=== PATIENT | male | born 1985 | race Caucasian/White ===

== ENCOUNTER 2024-09-16 18:30 | Emergency (ER) | payer MEDICAID ==
--- NOTE | 2024-09-16 18:33 | ERPHSYRPT ---
- History of Present Illness Time Seen by Provider: 09/16/24 18:33 Source: patient Exam Limitations: no limitations Physician History: This is a 39-year-old white male patient who was brought to the emergency department by law enforcement secondary to homicidal thoughts. He wants to hurt people. Patient admits to using K2 prior to arrival. Patient has paranoid behavior and he thinks the devil is following him. Despite that statement, patient states he denies visual or auditory hallucinations. He denies being suicidal but has had suicidal thoughts in the past. He denies headache. He denies chest pain. He denies shortness of breath. He has no abdominal pain. Patient is a daily smoker of tobacco cigarettes. Patient has a history of gastroesophageal reflux disease, ulcer disease, depression and panic disorder. Patient states that he prefers to go to [facility]. Timing/Duration: today Severity of Symptoms-Max: moderate Severity of Symptoms-Current: moderate Context related to: other (Drug abuse and admits to wanting to hurt people) Associated Symptoms: anxiety, paranoid, other Previous symptoms: same symptoms as today, no recent treatment Allergies/Adverse Reactions: No Known Drug Allergies Allergy (Verified 04/27/23 01:45) Home Medications: Omeprazole Magnesium [Prilosec Otc] 20 mg PO HS 04/27/23 [History] Hx Tetanus, Diphtheria Vaccination/Date Given: Yes Hx Influenza Vaccination/Date Given: No Hx Pneumococcal Vaccination/Date Given: No Travel Risk - International Travel Have you traveled outside of the country in past 3 weeks: No - Emerging Infectious Disease Are you exhibiting symptoms associated with any current EIDs: No - Past Medical History Pertinent Past Medical History: Yes Neurological History: No Pertinent History ENT History: No Pertinent History Cardiac History: Hypertension Respiratory History: No Pertinent History Endocrine Medical History: No Pertinent History Musculoskeletal History: Fractures GI Medical History: Ulcer, GERD History: No Pertinent History Psycho-Social History: Depression, Anxiety, Panic Disorder Male Reproductive Disorders: No Pertinent History Other Medical History: egd x2 - Past Surgical History Past Surgical History: Yes Neuro Surgical History: No Pertinent History Cardiac: No Pertinent History Respiratory: No Pertinent History Gastrointestinal: Cholecystectomy, Other Genitourinary: No Pertinent History Musculoskeletal: Orthopedic Surgery Male Surgical History: No Pertinent History Other Surgical History: egd, repair of marti. hand fractures, repair of colar bone fracture, repair of skull fracture - Social History Smoking Status: Current every day smoker How long have you smoked: 15yo Exposure to second hand smoke: Yes Drug Use: none Patient Lives Alone: No - Review of Systems Constitutional: No Symptoms Eyes: No Symptoms Ears, Nose, & Throat: No Symptoms Respiratory: No Symptoms Cardiac: No Symptoms Abdominal/Gastrointestinal: No Symptoms Genitourinary Symptoms: No Symptoms Musculoskeletal: No Symptoms Skin: No Symptoms Neurological: No Symptoms Psychological: Drug Abuse, Anxiety, Homicidal Ideations, Other (Paranoid behavior) Endocrine: No Symptoms Hematologic/Lymphatic: No Symptoms Immunological/Allergic: No Symptoms All Other Systems: Reviewed and Negative - Nursing Vital Signs Nursing Vital Signs: Initial Vital Signs Temperature 98.8 F 09/16/24 18:31 Pulse Rate 120 H 09/16/24 18:31 Respiratory Rate 20 09/16/24 18:31 Blood Pressure 184/112 09/16/24 18:31 O2 Sat by Pulse Oximetry 98 09/16/24 18:31 Pain Scale Pain Intensity 0 - Physical Exam General Appearance: no apparent distress, alert, anxiety Eyes, Ears, Nose, Throat Exam: normal ENT inspection, moist mucous membranes Neck Exam: normal inspection, non-tender, supple, full range of motion Respiratory Exam: normal breath sounds, lungs clear, airway intact, No chest tenderness, No respiratory distress Cardiovascular Exam: tachycardia Gastrointestinal/Abdominal Exam: soft, normal bowel sounds, No tenderness Extremities Exam: normal inspection, normal range of motion, No evidence of injury Current Suicidality: denies suicide plan 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 QTc is 470.) Ordered Tests: Active Orders 24 hr Category Date Time Status EKG-ER Only STAT Care 09/16/24 18:52 Active IV Insertion STAT Care 09/16/24 18:52 Active ACETAMINOPHEN Stat Lab 09/16/24 19:00 Completed CBC W DIFF Stat Lab 09/16/24 19:00 Completed CMP Stat Lab 09/16/24 19:00 Completed ETHYL ALCOHOL Stat Lab 09/16/24 19:00 Completed SALICYLATE Stat Lab 09/16/24 19:00 Completed UA W/RFX UR CULTURE Stat Lab 09/16/24 18:59 Completed Urine Triage Profile Stat Lab 09/16/24 18:59 Completed Medication Summary Generic Name Dose Route Start Last Admin Trade Name Freq PRN Reason Stop Dose Admin Nicotine 14 mg 09/16/24 20:45 09/16/24 21:02 Nicotine 14 Mg/Patch Patch TOP 10/16/24 20:44 14 mg Q24H ASHA Administration Discontinued Medications Generic Name Dose Route Start Last Admin Trade Name Freq PRN Reason Stop Dose Admin Haloperidol Lactate 5 mg 09/16/24 21:21 Haloperidol Lactate 5 Mg/Ml Vial IV 09/16/24 21:22 STAT ONE Haloperidol Lactate 2.5 mg 09/16/24 21:24 Haloperidol Lactate 5 Mg/Ml Vial IV 09/16/24 21:25 STAT ONE Sodium Chloride 1,000 mls @ 999 mls/hr 09/16/24 18:52 09/16/24 19:25 Sodium Chloride 0.9% 1000 Ml IV 09/16/24 19:52 999 mls/hr .Q1H1M STA Administration Sodium Chloride Confirm 09/16/24 19:16 Sodium Chloride 0.9% 1000 Ml Administered 09/16/24 19:17 Dose 1,000 mls @ ud .ROUTE .STK-MED ONE Lorazepam 1 mg 09/16/24 18:52 09/16/24 19:21 Lorazepam 2 Mg/1 Ml 2 Mg Vial IV 09/16/24 18:53 1 mg STAT ONE Administration Lorazepam Confirm 09/16/24 19:16 Lorazepam 2 Mg/1 Ml 2 Mg Vial Administered 09/16/24 19:17 Dose 2 mg .ROUTE .STK-MED ONE Ondansetron HCl 4 mg 09/16/24 18:52 09/16/24 19:18 Ondansetron Hcl 4 Mg/2 Ml Vial IV 09/16/24 18:53 4 mg STAT ONE Administration Ondansetron HCl Confirm 09/16/24 19:15 Ondansetron Hcl 4 Mg/2 Ml Vial Administered 09/16/24 19:16 Dose 4 mg .ROUTE .STK-MED ONE Lab/Rad Data: Laboratory Result Diagrams 09/16/24 19:00 09/16/24 19:00 Laboratory Results 09/16/24 09/16/24 09/16/24 Range/Units 19:00 19:00 18:59 WBC 7.1 (4.23-9.07) x10^3/uL RBC 4.19 L (4.63-6.08) x10^6/uL Hgb 13.8 (13.7-17.5) g/dL Hct 39.5 L (40.1-51.0) % MCV 94.3 H (79.0-92.2) fL MCH 32.9 H (25.7-32.2) pg MCHC 34.9 (32.3-36.5) g/dL RDW 11.9 (11.6-14.4) % Plt Count 286 (163-337) x10^3/uL MPV 9.4 (9.4-12.4) fL Gran % 52.1 (34.0-67.9) % Immature Gran % (Auto) 0.3 (0.001-0.429) % Nucleat RBC Rel Count 0.0 (0.00-0.2) % Eos # (Auto) 0.38 (0.04-0.54) x10^3/uL Immature Gran # (Auto) 0.02 (0.001-0.031) x10^3u/L Absolute Lymphs (auto) 2.26 (1.32-3.57) x10^3/uL Absolute Monos (auto) 0.68 (0.30-0.82) x10^3/uL Absolute Nucleated RBC 0.00 (0.00-0.012) x10^3u/L Lymphocytes % 31.7 (21.8-53.1) % Monocytes % 9.6 (5.3-12.2) % Eosinophils % 5.3 (0.8-7.0) % Basophils % 1.0 (0.2-1.2) % Absolute Granulocytes 3.71 (1.78-5.38) x10^3/uL Basophils # 0.07 (0.01-0.08) x10^3/uL Sodium 140 (135-145) mmol/L Potassium 3.7 (3.5-5.1) mmol/L Chloride 103 (98-107) mmol/L Carbon Dioxide 25 (22-30) mmol/L Anion Gap 15.6 H (5-15) MEQ/L BUN 12 (9-20) mg/dL Creatinine 0.84 (0.66-1.25) mg/dL Estimated GFR 113.8 ML/MIN Glucose 117 H (74-106) mg/dL Calcium 9.1 (8.4-10.2) mg/dL Total Bilirubin 0.30 (0.2-1.3) mg/dL AST 33 (17-59) U/L ALT 24 (0-50) U/L Alkaline Phosphatase 67 (38-126) U/L Serum Total Protein 6.8 (6.3-8.2) g/dL Albumin 4.0 (3.5-5.0) g/dL Urine Color (Yellow) Urine Appearance (Clear) Urine pH (4.6-8.0) Ur Specific [place] (1.005-1.030) Urine Protein (Negative) Urine Glucose (UA) (Negative) mg/dL Urine Ketones (Negative) Urine Blood (Negative) Urine Nitrite (Negative) Urine Bilirubin (Negative) Urine Urobilinogen (0.2) mg/dL Ur Leukocyte Esterase (Negative) U Hyaline Cast (Auto) (0-2) /LPF Urine Microscopic RBC (0-5) /HPF Urine Microscopic WBC (0-5) /HPF Ur Epithelial Cells (None Seen) /HPF Urine Bacteria (None Seen) /HPF Urine Culture Reflexed (NO) Salicylates < 1.0 L (2-20) mg/dL Urine Opiates Level NEGATIVE (NEGATIVE) Ur Methadone NEGATIVE (NEGATIVE) Acetaminophen < 10 L (10-30) ug/ml Urine Barbiturates NEGATIVE (NEGATIVE) Ur Phencyclidine (PCP) NEGATIVE (NEGATIVE) Urine Amphetamine POSITIVE A (NEGATIVE) U Benzodiazepine Level NEGATIVE (NEGATIVE) Urine Cocaine NEGATIVE (NEGATIVE) Urine Marijuana (THC) POSITIVE A (NEGATIVE) Ethyl Alcohol < 10 (0-10) mg/dL 09/16/24 Range/Units 18:59 WBC (4.23-9.07) x10^3/uL RBC (4.63-6.08) x10^6/uL Hgb (13.7-17.5) g/dL Hct (40.1-51.0) % MCV (79.0-92.2) fL MCH (25.7-32.2) pg MCHC (32.3-36.5) g/dL RDW (11.6-14.4) % Plt Count (163-337) x10^3/uL MPV (9.4-12.4) fL Gran % (34.0-67.9) % Immature Gran % (Auto) (0.001-0.429) % Nucleat RBC Rel Count (0.00-0.2) % Eos # (Auto) (0.04-0.54) x10^3/uL Immature Gran # (Auto) (0.001-0.031) x10^3u/L Absolute Lymphs (auto) (1.32-3.57) x10^3/uL Absolute Monos (auto) (0.30-0.82) x10^3/uL Absolute Nucleated RBC (0.00-0.012) x10^3u/L Lymphocytes % (21.8-53.1) % Monocytes % (5.3-12.2) % Eosinophils % (0.8-7.0) % Basophils % (0.2-1.2) % Absolute Granulocytes (1.78-5.38) x10^3/uL Basophils # (0.01-0.08) x10^3/uL Sodium (135-145) mmol/L Potassium (3.5-5.1) mmol/L Chloride (98-107) mmol/L Carbon Dioxide (22-30) mmol/L Anion Gap (5-15) MEQ/L BUN (9-20) mg/dL Creatinine (0.66-1.25) mg/dL Estimated GFR ML/MIN Glucose (74-106) mg/dL Calcium (8.4-10.2) mg/dL Total Bilirubin (0.2-1.3) mg/dL AST (17-59) U/L ALT (0-50) U/L Alkaline Phosphatase (38-126) U/L Serum Total Protein (6.3-8.2) g/dL Albumin (3.5-5.0) g/dL Urine Color Dark Yellow (Yellow) Urine Appearance Clear (Clear) Urine pH 5.5 (4.6-8.0) Ur Specific [place] >=1.030 A (1.005-1.030) Urine Protein 30 (Negative) Urine Glucose (UA) Negative (Negative) mg/dL Urine Ketones Trace A (Negative) Urine Blood Negative (Negative) Urine Nitrite Negative (Negative) Urine Bilirubin Negative (Negative) Urine Urobilinogen 1.0 A (0.2) mg/dL Ur Leukocyte Esterase Negative (Negative) U Hyaline Cast (Auto) NONE SEEN (0-2) /LPF Urine Microscopic RBC 0-2 (0-5) /HPF Urine Microscopic WBC 0-2 (0-5) /HPF Ur Epithelial Cells None Seen (None Seen) /HPF Urine Bacteria None Seen (None Seen) /HPF Urine Culture Reflexed NO (NO) Salicylates (2-20) mg/dL Urine Opiates Level (NEGATIVE) Ur Methadone (NEGATIVE) Acetaminophen (10-30) ug/ml Urine Barbiturates (NEGATIVE) Ur Phencyclidine (PCP) (NEGATIVE) Urine Amphetamine (NEGATIVE) U Benzodiazepine Level (NEGATIVE) Urine Cocaine (NEGATIVE) Urine Marijuana (THC) (NEGATIVE) Ethyl Alcohol (0-10) mg/dL - Progress Progress: improved Progress Note: 09/16/24 19:24 My medical decision making of the assignment of moderate to high complexity of this patient's medical issue today is based on review of the patient's past medical history, review the patient's medication list, review the patient drug allergy list, history present illness and physical findings on examination. The workup in this patient includes placement of a intravenous line, infusion of normal saline solution, infusion of Zofran, urinalysis, urine drug triage, CBC, CMP, acetaminophen level, ethyl alcohol level, salicylate level. Differential diagnosis includes but is not limited to illicit drug intoxication, alcohol intoxication, panic disorder, homicidal ideation 09/16/24 19:31 I interpreted the patient's laboratory data results. The patient tested positive for amphetamines and marijuana. His urinalysis also showed evidence of mild dehydration. 09/16/24 21:22 This patient is becoming more irritated and agitated. We did provide him with 1 mg of intravenous lorazepam but it did not seem to help calm him. We will provide him with Haldol lactate intravenously 2.5 mg. We are also in the process of filling out the paperwork for emergency snf. Patient is threatening to leave. 09/17/24 01:05 We held off on providing this patient with Haldol. [facility] stated they wanted 4 hours between any medication that is altering this patient's mental status. Patient was given Ativan. After 4 hours from the last dose of Ativan, [facility] reevaluated patient and now accepts the patient for transfer. Counseled pt/family regarding: lab results, diagnosis Medical Desision Making - Diagnostic Testing Diagnostic test were ordered, analyzed, and reviewed by me: Yes - Risk of complications The pt has a high risk of morbidity or mortality based on: Decision regarding hospitilization or escalation of hosp level of care - Departure Departure Disposition: Transfer Clinical Impression: Homicidal ideation, Paranoia Condition: Stable Critical Care Time: No Referrals: CHANTEL MOBLEY MD [Primary Care Provider] - Follow up/PCP as directed
[2024-09-16 19:03] LABS: Appearance Clear (Clear); Bacteria None Seen /HPF (None Seen); Bilirubin Negative (Negative); Blood Negative (Negative); Epithelial Cells None Seen /HPF (None Seen); Glucose, Urine Negative (Negative); Hyaline Casts NONE SEEN /LPF (0-2); Ketones Trace (Negative); Leukocyte Esterase Negative (Negative); Nitrite Negative (Negative); Ph 5.5 (4.6-8.0); Protein,Urine Dip 30 (Negative); RBC 0-2 /HPF (0-5); Specific Gravity >=1.030 (1.005-1.030); WBC 0-2 /HPF (0-5)
[2024-09-16 19:05] LABS: Absolute Neutrophil Ct (ANC) 3.71 x10^3/uL (1.78-5.38); Basophil (Absolute #) 0.07 x10^3/uL (0.01-0.08); Eosinophil % 5.3 % (0.8-7.0); Eosinophil (Absolute #) 0.38 x10^3/uL (0.04-0.54); Hematocrit 39.5 % (40.1-51.0); Hemoglobin 13.8 g/dL (13.7-17.5); IMMATURE GRAN # 0.02 x10^3u/L (0.001-0.031); IMMATURE GRAN % 0.3 % (0.001-0.429); Lymphocyte (Absolute #) 2.26 x10^3/uL (1.32-3.57); Lymphocytes % 31.7 % (21.8-53.1); Mean Cell Volume 94.3 fL (79.0-92.2); Mean Corpuscular Hemoglobin 32.9 pg (25.7-32.2); Mean Corpuscular Hgb Concent. 34.9 g/dL (32.3-36.5); Mean Platelet Volume 9.4 fL (9.4-12.4); Monocyte (Absolute #) 0.68 x10^3/uL (0.30-0.82); Monocytes % 9.6 % (5.3-12.2); Neutrophil % 52.1 % (34.0-67.9); Platelet Count 286 x10^3/uL (163-337); Red Blood Count 4.19 x10^6/uL (4.63-6.08); Red Cell Distribution Width 11.9 % (11.6-14.4); White Blood Count 7.1 x10^3/uL (4.23-9.07)
[2024-09-16] MEDS ORDERED: Zofran 4 MG/2 ML VIAL ONE (19:15)
[2024-09-16] MEDS ORDERED: Ativan 2 MG/1 ML VIAL ONE (19:16)
[2024-09-16] MEDS ORDERED: Sodium Chloride 0.9% 1000 ML 1,000 ML ONE (19:16)
[2024-09-16] MEDS: Zofran 4 MG/2 ML VIAL IV ONE (19:18)
[2024-09-16 19:19] LABS: Amphetamine,Urine POSITIVE (NEGATIVE); Barbiturate,Urine NEGATIVE (NEGATIVE); Benzodiazepine,Urine NEGATIVE (NEGATIVE); Cocaine,Urine NEGATIVE (NEGATIVE); Methadone,Urine NEGATIVE (NEGATIVE); Opiate,Urine NEGATIVE (NEGATIVE); PCP,Urine NEGATIVE (NEGATIVE); THC,Urine POSITIVE (NEGATIVE)
[2024-09-16 19:21] LABS: ACETAMINOPHEN < 10 ug/ml (10-30); ALKALINE PHOSPHATASE 67 U/L (38-126); ANION GAP 15.6 MEQ/L (5-15); BLOOD UREA NITROGEN 12 mg/dL (9-20); CHLORIDE 103 mmol/L (98-107); Calcium 9.1 mg/dL (8.4-10.2); Carbon Dioxide 25 mmol/L (22-30); Creatinine 1 0.84 mg/dL (0.66-1.25); EST GLOMERULAR FILTRATION RATE 113.8 ML/MIN; ETHYL ALCOHOL < 10 mg/dL (0-10); Glucose 117 mg/dL (74-106); Potassium 3.7 mmol/L (3.5-5.1); SALICYLATE < 1.0 mg/dL (2-20); SGOT/AST 33 U/L (17-59); SODIUM 140 mmol/L (135-145); Total Protein 6.8 g/dL (6.3-8.2)
[2024-09-16] MEDS: Ativan 2 MG/1 ML VIAL IV ONE (19:21)
[2024-09-16 19:22] LABS: SGPT/ALT 24 U/L (0-50)
[2024-09-16] MEDS: Sodium Chloride 0.9% 1000 ML 1,000 ML IV STA (19:25)
[2024-09-16] MEDS ORDERED: NICODERM CQ 14 MG ONE (20:48)
[2024-09-16] MEDS: NICODERM CQ 14 MG TOP SCH (21:02)
[2024-09-17] MEDS: Haldol 5 MG IV ONE ×2 (03:01)
[2024-09-17 09:11] VITALS: BP 147/62; PULSE 98; RESP 18; TEMP 97.2; O2SAT 98
== END 2024-09-17 09:35 | disposition short-term general hospital (02) ==
LOC: ED 18:30
DX: R45.850 Homicidal ideations (principal); F22 Delusional disorders; R45.1 Restlessness and agitation; I10 Essential (primary) hypertension; Z79.899 Other long term (current) drug therapy; Z72.0 Tobacco use
CPT/HCPCS: 36415; 80053; 80143; 80179; 80307; 81001; 82077; 85025; 93005; 96361; 96374; 96375; 99285; J2060; J2405; A9270-GY

== ENCOUNTER 2024-10-11 22:30 | Observation (INO) | payer OTHER ==
[2024-10-11 22:55] LABS: Absolute Neutrophil Ct (ANC) 5.71 x10^3/uL (1.78-5.38); BASOPHIL % 0.7 % (0.2-1.2); Basophil (Absolute #) 0.08 x10^3/uL (0.01-0.08); Eosinophil % 3.7 % (0.8-7.0); Hematocrit 43.9 % (40.1-51.0); Hemoglobin 15.5 g/dL (13.7-17.5); IMMATURE GRAN # 0.06 x10^3u/L (0.001-0.031); IMMATURE GRAN % 0.6 % (0.001-0.429); Lymphocyte (Absolute #) 3.88 x10^3/uL (1.32-3.57); Lymphocytes % 35.8 % (21.8-53.1); Mean Cell Volume 93.4 fL (79.0-92.2); Mean Corpuscular Hgb Concent. 35.3 g/dL (32.3-36.5); Mean Platelet Volume 10.6 fL (9.4-12.4); Monocyte (Absolute #) 0.72 x10^3/uL (0.30-0.82); Monocytes % 6.6 % (5.3-12.2); Neutrophil % 52.6 % (34.0-67.9); Platelet Count 413 x10^3/uL (163-337); Red Cell Distribution Width 12.8 % (11.6-14.4); White Blood Count 10.9 x10^3/uL (4.23-9.07)
[2024-10-11 23:11] LABS: PROTIME 10.9 SECONDS (9.4-12.5); PTT 27.1 SECONDS (25.1-36.5)
[2024-10-11 23:15] LABS: ALBUMIN 4.7 g/dL (3.5-5.0); ANION GAP 17.6 MEQ/L (5-15); BILIRUBIN,TOTAL 0.4 mg/dL (0.2-1.3); Calcium 9.5 mg/dL (8.4-10.2); Creatinine 1 0.74 mg/dL (0.66-1.25); EST GLOMERULAR FILTRATION RATE 118.2 ML/MIN; MAGNESIUM 1.7 mg/dL (1.6-2.3); Potassium 3.7 mmol/L (3.5-5.1)
--- NOTE | 2024-10-11 23:35 | XRAY ---
CLINICAL HISTORY: facial droop COMPARISON: None. TECHNIQUE: Axial non-contrast CT scan of the brain was performed from the skull base to the high parietal region. One of the following dose reduction techniques were utilized for this exam: Automated exposure control, adjustment of the mA and/or kV according to patient size, use of iterative reconstruction. FINDINGS: Brain Parenchyma: Right posterior parietal focal hypodense area measuring 10 mm in subcortical aspect, better delineated on stroke windows, this may represent an acute infarct, considering patients history however clinical correlation and an MRI brain using stroke protocol is advised acute infarct. Ventricular System: Ventricles are normal in size and configuration. No evidence of hydrocephalus or ventricular enlargement. Subarachnoid Spaces: Normal sulci and cisterns. No evidence of subarachnoid hemorrhage or extra-axial fluid collections. Cerebellum and Brainstem: Normal size and signal. No masses, lesions, or areas of abnormal signal. Orbits: Intraocular silicone oil noted on the right side. Otherwise, normal appearance of the globes, optic nerves, and extraocular muscles. Sinuses: Clear paranasal sinuses. No evidence of sinusitis or mucosal thickening. Mastoid Air Cells: Clear mastoid air cells. No evidence of mastoiditis. Skull: Normal skull morphology. IMPRESSION: Small right posterior parietal focal hypodense area measuring 10 mm in subcortical aspect, better delineated on stroke windows. This may represent an acute infarct considering patient's history, however recommend clinical correlation and MR brain using stroke protocol with diffusion weighted sequences for further evaluation. The report was ready at 10:25 PM [facility], 10/11/2024 and the call was completed at 10:28 PM [facility] [[email or web address]], 10/11/2024, at and Orin (Nurse) was informed regarding the positive stroke results. She will inform the doctor. Electronically Signed by: Geetha Gardner MD. (10/11/2024 23:31:54 EDT)
[2024-10-12] MEDS ORDERED: Sodium Chloride 0.9% 1000 ML 1,000 ML ONE (00:47)
[2024-10-12] MEDS ORDERED: BABY ASPIRIN 81 MG CHEW ONE (00:47)
[2024-10-12] MEDS: BABY ASPIRIN 81 MG CHEW PO ONE (00:50)
[2024-10-12] MEDS: Sodium Chloride 0.9% 1000 ML 1,000 ML IV STA (00:50)
[2024-10-12 00:51] LABS: Appearance Clear (Clear); Bacteria None Seen /HPF (None Seen); Bilirubin Negative (Negative); Blood Negative (Negative); Epithelial Cells None Seen /HPF (None Seen); Glucose, Urine Negative (Negative); Hyaline Casts NONE SEEN /LPF (0-2); Ketones Negative (Negative); Leukocyte Esterase Negative (Negative); Nitrite Negative (Negative); Protein,Urine Dip Negative (Negative); RBC 0-2 /HPF (0-5); Specific Gravity 1.025 (1.005-1.030); WBC 0-2 /HPF (0-5)
--- NOTE | 2024-10-12 01:27 | ERPHSYRPT ---
- History of Present Illness Source: patient, family, EMS Exam Limitations: clinical condition Patient Subjective Stated Complaint: Girl friend states, " Triage Nursing Assessment: Pt brought in by EMS. At 1730 this evening, pt c/o left side of his body going numb. Pt's girlfriend was helping him to the bathroom and he wanted to get into the bathtub as she was trying to prevent him from getting in the tub, and they both fell. Girlfriend states, "he had slurred speech, left side of mouth was droopy and he couldn't move". Pt c/o left hand being numb and the first 3 fingers to the left hand being numb. Pt's left arm is somewhat flaccid, he is unable to hold it up. When smiling, left side facial droop noted and speech is slurred but able to make out what he is saying. Pt is alert and oriented x4. 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 Hx Tetanus, Diphtheria Vaccination/Date Given: Yes Hx Influenza Vaccination/Date Given: No Hx Pneumococcal Vaccination/Date Given: No - History of Present Illness Time Seen by Provider: 10/11/24 22:32 Physician History: 39-year-old male with history of anxiety/depression/schizophrenia, retinal detachment right eye/legally blind is brought in the ER by strokelike symptoms. Apparently patient has not been acting at his baseline for the last couple of days and around 7:30 PM he became really wobbly where he was not able to ambulate in his left side was not working, slurring of speech, his helped him to the bathroom and he was totally flaccid on the left side and fell. Did not hit his head. No loss of consciousness. Patient was noticed to have droo ping of left face (DENIZ ARREOLA) Allergies/Adverse Reactions: No Known Drug Allergies Allergy (Verified 10/12/24 04:27) Home Medications: Buspirone HCl 5 mg [Buspar 5 mg] 10 mg PO TID 10/11/24 [History] OLANZapine [Olanzapine] 10 mg PO HS 10/11/24 [History] Prazosin HCl 2 mg PO HS 10/12/24 [History] Trazodone HCl 100 mg PO HS 10/12/24 [History] hydrOXYzine pamoate [Hydroxyzine Pamoate] 1 cap PO Q6H PRN PRN 10/12/24 [Hist ory] Travel Risk - International Travel Have you traveled outside of the country in past 3 weeks: No - Emerging Infectious Disease Are you exhibiting symptoms associated with any current EIDs: No Symptoms: Other (Please Comment) Comment: numbness to left arm - Review of Systems Constitutional: Weakness Eyes: Other Ears, Nose, & Throat: No Symptoms Respiratory: No Symptoms Cardiac: No Symptoms Abdominal/Gastrointestinal: No Symptoms Musculoskeletal: Arthralgias Skin: No Symptoms Neurological: Dizziness, Focal Weakness, Sensory Changes Endocrine: No Symptoms Hematologic/Lymphatic: No Symptoms - Past Medical History Pertinent Past Medical History: Yes Neurological History: No Pertinent History ENT History: No Pertinent History Cardiac History: Hypertension Respiratory History: No Pertinent History Endocrine Medical History: No Pertinent History Musculoskeletal History: Fractures GI Medical History: GERD, Gallbladder Disease, Ulcer History: No Pertinent History Psycho-Social History: Depression, Anxiety, Panic Disorder Male Reproductive Disorders: No Pertinent History Other Medical History: egd x2, 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 - Past Surgical History Past Surgical History: Yes Neuro Surgical History: No Pertinent History Cardiac: No Pertinent History Respiratory: No Pertinent History Gastrointestinal: Cholecystectomy, Other Genitourinary: No Pertinent History Musculoskeletal: Orthopedic Surgery Male Surgical History: No Pertinent History Other Surgical History: egd, repair of marti. hand fractures, repair of colar bone fracture, repair of skull fracture - Social History Smoking Status: Current every day smoker How long have you smoked: 20 yrs Exposure to second hand smoke: Yes Drug Use: none - Social Determinants of Health Will the patient participate in the screening: Yes Do you worry about a steady place to live?: No Do you have any problems with any of the following?: No known problems In the past 12 months,have you had to go without utilities?: No Transportation Issues: Yes Has anyone in your support network made you feel unsafe?: No Have you or anyone in your house had to go w/o enough food: No - [place] Coma Scale Best Eye Response ([place]): (4) open spontaneously Best Verbal Response ([place]): (5) oriented Best Motor Response ([place]): (6) obeys commands [place] Total: 15 - Physical Exam General Appearance: no apparent distress, alert Eye Exam: left eye: normal inspection, PERRL, EOMI Ears, Nose, Throat Exam: other (Left facial droop) Neck Exam: normal inspection, non-tender, supple, full range of motion Respiratory: normal breath sounds, lungs clear Cardiovascular: regular rate/rhythm, normal heart sounds Gastrointestinal: soft, normal bowel sounds, No tenderness Back Exam: normal inspection Extremity Exam: normal inspection Mental Status: alert, oriented x 3, 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 Exam: normal hearing, facial asymmetry, facial droop, facial paresthesias, facial weakness, No normal speech Coordination/Gait: normal finger to nose, No normal gait Motor/Sensory: positive Babinski's sign, pronator drift (L), weak motor strength LUE, weak motor strength LLE DTR: bicep (R): 2+, bicep (L): 3+, tricep (R): 2+, tricep (L): 3+, knee (R): 2+, knee (L): 3+ Skin Exam: normal color SpO2 Interpretation: normal SpO2: 98 O2 Delivery: Room Air - Nursing Vital Signs Nursing Vital Signs: Initial Vital Signs Temperature 98.6 F 10/11/24 22:33 Pulse Rate 92 H 10/11/24 22:33 Respiratory Rate 16 10/11/24 22:33 Blood Pressure 137/90 10/11/24 22:33 O2 Sat by Pulse Oximetry 95 10/11/24 22:33 Pain Scale Pain Intensity 0 - Course EKG Interpreted by Me: RATE (90), Sinus Rhythm, NORMAL AXIS, NORMAL INTERVALS, NORMAL QRS Ordered Tests: Active Orders 24 hr Category Date Time Status Bedrest ROUTINE Activity 10/12/24 04:06 Active Up With Assistance ROUTINE Activity 10/12/24 04:06 Completed Call Admit Doctor for Orders ON ADMISSION Care 10/12/24 04:06 Active Supervisor Electronics Assembly STAT Care 10/11/24 22:47 Completed Code Status Order ROUTINE Care 10/12/24 04:06 Active Fall Protocol Q1H Care 10/12/24 04:06 Active NPO (ED) STAT Care 10/11/24 22:47 Completed Neuro Checks Q4H Care 10/12/24 04:[address] in Observation ROUTINE Care 10/12/24 04:06 Active Telemetry q6h Care 10/12/24 04:06 Active CHEST 1 VIEW (PORTABLE) Stat Exams 10/11/24 22:[address] ANGIOGRAPHY NECK [CT] Stat Exams 10/12/24 01:29 Completed CTA HEAD W AND/OR WO CONTRAST [CT] Stat Exams 10/12/24 01:28 Completed HEAD WITHOUT CONTRAST [CT] Stat Exams 10/11/24 22:47 Completed CBC W DIFF Stat Lab 10/11/24 22:52 Completed CMP Stat Lab 10/11/24 22:52 Completed Lactic Acid Stat Lab 10/11/24 22:47 Completed Lactic Acid Stat Lab 10/12/24 01:01 Completed MAGNESIUM Stat Lab 10/11/24 22:52 Completed POCT GLUCOSE Stat Lab 10/11/24 22:43 Completed PROTIME WITH INR Stat Lab 10/11/24 22:52 Completed PTT Stat Lab 10/11/24 22:52 Completed TROPONIN Q3H Lab 10/11/24 22:54 Completed TROPONIN Q3H Lab 10/12/24 02:28 Completed TROPONIN Q3H Lab 10/12/24 06:13 Results Pulse Oximetry CONTINUOUS RT 10/12/24 04:06 Active Respiratory Therapy Consult ONCE RT 10/12/24 04:06 Completed Transfer Order Routine Transfer 10/12/24 Completed Medication Summary Generic Name Dose Route Start Last Admin Trade Name Freq PRN Reason Stop Dose Admin Aspirin 81 mg 10/12/24 10:00 Aspirin 81 Mg Tablet.Ec PO 11/11/24 09:59 DAILY ASHA Buspirone HCl 10 mg 10/12/24 10:00 Buspirone Hcl 5 Mg Tablet PO 11/11/24 09:59 TID ASHA Sodium Chloride 1,000 mls @ 100 mls/hr 10/12/24 05:00 10/12/24 05:14 Sodium Chloride 0.9% 1000 Ml IV 11/11/24 04:59 100 mls/hr .Q10H ASHA Administration Miscellaneous Information 1 each 10/12/24 07:45 Medication Intervention 1 Each Each 11/11/24 07:44 .RN TO CHECK ASHA Olanzapine 10 mg 10/12/24 22:00 Olanzapine 5 Mg Tab PO 11/11/24 21:59 HS ASHA Trazodone HCl 100 mg 10/12/24 22:00 Trazodone Hcl 50 Mg Tablet PO 11/11/24 21:59 HS ASHA Discontinued Medications Generic Name Dose Route Start Last Admin Trade Name Freq PRN Reason Stop Dose Admin Aspirin 324 mg 10/12/24 00:08 10/12/24 00:50 Aspirin 81 Mg Tab.Chew PO 10/12/24 00:09 324 mg STAT ONE Administration Aspirin Confirm 10/12/24 00:47 Aspirin 81 Mg Tab.Chew Administered 10/12/24 00:48 Dose 324 mg .ROUTE .STK-MED ONE Sodium Chloride 1,000 mls @ 999 mls/hr 10/12/24 00:36 10/12/24 02:20 Sodium Chloride 0.9% 1000 Ml IV 10/12/24 01:36 Infused .Q1H1M STA Infusion Sodium Chloride Confirm 10/12/24 00:47 Sodium Chloride 0.9% 1000 Ml Administered 10/12/24 00:48 Dose 1,000 mls @ ud .ROUTE .STK-MED ONE Lorazepam 1 mg 10/12/24 09:34 10/12/24 09:39 Lorazepam 2 Mg/1 Ml 2 Mg Vial IV 10/12/24 09:35 1 mg STAT ONE Administration Lorazepam Confirm 10/12/24 09:38 Lorazepam 2 Mg/1 Ml 2 Mg Vial Administered 10/12/24 09:39 Dose 2 mg .ROUTE .STK-MED ONE Nicotine Confirm 10/12/24 03:05 Nicotine 21 Mg/Patch Patch Administered 10/12/24 03:06 Dose 21 mg .ROUTE .STK-MED ONE Lab/Rad Data: Laboratory Result Diagrams 10/11/24 22:52 10/11/24 22:52 Laboratory Results 10/12/24 10/12/24 10/11/24 Range/Units 02:28 01:01 22:54 WBC (4.23-9.07) x10^3/uL RBC (4.63-6.08) x10^6/uL Hgb (13.7-17.5) g/dL Hct (40.1-51.0) % MCV (79.0-92.2) fL MCH (25.7-32.2) pg MCHC (32.3-36.5) g/dL RDW (11.6-14.4) % Plt Count (163-337) x10^3/uL MPV (9.4-12.4) fL Gran % (34.0-67.9) % Immature Gran % (Auto) (0.001-0.429) % Nucleat RBC Rel Count (0.00-0.2) % Eos # (Auto) (0.04-0.54) x10^3/uL Immature Gran # (Auto) (0.001-0.031) x10^3u/L Absolute Lymphs (auto) (1.32-3.57) x10^3/uL Absolute Monos (auto) (0.30-0.82) x10^3/uL Absolute Nucleated RBC (0.00-0.012) x10^3u/L Lymphocytes % (21.8-53.1) % Monocytes % (5.3-12.2) % Eosinophils % (0.8-7.0) % Basophils % (0.2-1.2) % Absolute Granulocytes (1.78-5.38) x10^3/uL Basophils # (0.01-0.08) x10^3/uL PT (9.4-12.5) SECONDS INR (0.8-3.0) APTT (25.1-36.5) SECONDS Sodium (135-145) mmol/L Potassium (3.5-5.1) mmol/L Chloride (98-107) mmol/L Carbon Dioxide (22-30) mmol/L Anion Gap (5-15) MEQ/L BUN (9-20) mg/dL Creatinine (0.66-1.25) mg/dL Estimated GFR ML/MIN Glucose (74-106) mg/dL POC Glucometer (74 to 106) mg/dL Lactic Acid 1.5 (0.4-2.0) Calcium (8.4-10.2) mg/dL Magnesium (1.6-2.3) mg/dL Total Bilirubin (0.2-1.3) mg/dL AST (17-59) U/L ALT (0-50) U/L Alkaline Phosphatase (38-126) U/L Troponin I < 0.012 < 0.012 (0.000-0.033) ng/mL Serum Total Protein (6.3-8.2) g/dL Albumin (3.5-5.0) g/dL Urine Color (Yellow) Urine Appearance (Clear) Urine pH (4.6-8.0) Ur Specific [place] (1.005-1.030) Urine Protein (Negative) Urine Glucose (UA) (Negative) mg/dL Urine Ketones (Negative) Urine Blood (Negative) Urine Nitrite (Negative) Urine Bilirubin (Negative) Urine Urobilinogen (0.2) mg/dL Ur Leukocyte Esterase (Negative) U Hyaline Cast (Auto) (0-2) /LPF Urine Microscopic RBC (0-5) /HPF Urine Microscopic WBC (0-5) /HPF Ur Epithelial Cells (None Seen) /HPF Urine Bacteria (None Seen) /HPF Urine Culture Reflexed (NO) 10/11/24 10/11/24 10/11/24 Range/Units 22:52 22:52 22:52 WBC 10.9 H (4.23-9.07) x10^3/uL RBC 4.70 (4.63-6.08) x10^6/uL Hgb 15.5 (13.7-17.5) g/dL Hct 43.9 (40.1-51.0) % MCV 93.4 H (79.0-92.2) fL MCH 33.0 H (25.7-32.2) pg MCHC 35.3 (32.3-36.5) g/dL RDW 12.8 (11.6-14.4) % Plt Count 413 H (163-337) x10^3/uL MPV 10.6 (9.4-12.4) fL Gran % 52.6 (34.0-67.9) % Immature Gran % (Auto) 0.6 H (0.001-0.429) % Nucleat RBC Rel Count 0.0 (0.00-0.2) % Eos # (Auto) 0.40 (0.04-0.54) x10^3/uL Immature Gran # (Auto) 0.06 H (0.001-0.031) x10^3u/L Absolute Lymphs (auto) 3.88 H (1.32-3.57) x10^3/uL Absolute Monos (auto) 0.72 (0.30-0.82) x10^3/uL Absolute Nucleated RBC 0.00 (0.00-0.012) x10^3u/L Lymphocytes % 35.8 (21.8-53.1) % Monocytes % 6.6 (5.3-12.2) % Eosinophils % 3.7 (0.8-7.0) % Basophils % 0.7 (0.2-1.2) % Absolute Granulocytes 5.71 H (1.78-5.38) x10^3/uL Basophils # 0.08 (0.01-0.08) x10^3/uL PT 10.9 (9.4-12.5) SECONDS INR 1.00 (0.8-3.0) APTT 27.1 (25.1-36.5) SECONDS Sodium 142 (135-145) mmol/L Potassium 3.7 (3.5-5.1) mmol/L Chloride 104 (98-107) mmol/L Carbon Dioxide 24 (22-30) mmol/L Anion Gap 17.6 H (5-15) MEQ/L BUN 14 (9-20) mg/dL Creatinine 0.74 (0.66-1.25) mg/dL Estimated GFR 118.2 ML/MIN Glucose 140 H (74-106) mg/dL POC Glucometer (74 to 106) mg/dL Lactic Acid (0.4-2.0) Calcium 9.5 (8.4-10.2) mg/dL Magnesium 1.7 (1.6-2.3) mg/dL Total Bilirubin 0.40 (0.2-1.3) mg/dL AST 29 (17-59) U/L ALT 26 (0-50) U/L Alkaline Phosphatase 65 (38-126) U/L Troponin I (0.000-0.033) ng/mL Serum Total Protein 8.0 (6.3-8.2) g/dL Albumin 4.7 (3.5-5.0) g/dL Urine Color (Yellow) Urine Appearance (Clear) Urine pH (4.6-8.0) Ur Specific [place] (1.005-1.030) Urine Protein (Negative) Urine Glucose (UA) (Negative) mg/dL Urine Ketones (Negative) Urine Blood (Negative) Urine Nitrite (Negative) Urine Bilirubin (Negative) Urine Urobilinogen (0.2) mg/dL Ur Leukocyte Esterase (Negative) U Hyaline Cast (Auto) (0-2) /LPF Urine Microscopic RBC (0-5) /HPF Urine Microscopic WBC (0-5) /HPF Ur Epithelial Cells (None Seen) /HPF Urine Bacteria (None Seen) /HPF Urine Culture Reflexed (NO) 10/11/24 10/11/24 10/11/24 Range/Units 22:47 22:43 00:40 WBC (4.23-9.07) x10^3/uL RBC (4.63-6.08) x10^6/uL Hgb (13.7-17.5) g/dL Hct (40.1-51.0) % MCV (79.0-92.2) fL MCH (25.7-32.2) pg MCHC (32.3-36.5) g/dL RDW (11.6-14.4) % Plt Count (163-337) x10^3/uL MPV (9.4-12.4) fL Gran % (34.0-67.9) % Immature Gran % (Auto) (0.001-0.429) % Nucleat RBC Rel Count (0.00-0.2) % Eos # (Auto) (0.04-0.54) x10^3/uL Immature Gran # (Auto) (0.001-0.031) x10^3u/L Absolute Lymphs (auto) (1.32-3.57) x10^3/uL Absolute Monos (auto) (0.30-0.82) x10^3/uL Absolute Nucleated RBC (0.00-0.012) x10^3u/L Lymphocytes % (21.8-53.1) % Monocytes % (5.3-12.2) % Eosinophils % (0.8-7.0) % Basophils % (0.2-1.2) % Absolute Granulocytes (1.78-5.38) x10^3/uL Basophils # (0.01-0.08) x10^3/uL PT (9.4-12.5) SECONDS INR (0.8-3.0) APTT (25.1-36.5) SECONDS Sodium (135-145) mmol/L Potassium (3.5-5.1) mmol/L Chloride (98-107) mmol/L Carbon Dioxide (22-30) mmol/L Anion Gap (5-15) MEQ/L BUN (9-20) mg/dL Creatinine (0.66-1.25) mg/dL Estimated GFR ML/MIN Glucose (74-106) mg/dL POC Glucometer 144 H (74 to 106) mg/dL Lactic Acid 2.8 H (0.4-2.0) Calcium (8.4-10.2) mg/dL Magnesium (1.6-2.3) mg/dL Total Bilirubin (0.2-1.3) mg/dL AST (17-59) U/L ALT (0-50) U/L Alkaline Phosphatase (38-126) U/L Troponin I (0.000-0.033) ng/mL Serum Total Protein (6.3-8.2) g/dL Albumin (3.5-5.0) g/dL Urine Color Yellow (Yellow) Urine Appearance Clear (Clear) Urine pH 7.0 (4.6-8.0) Ur Specific [place] 1.025 (1.005-1.030) Urine Protein Negative (Negative) Urine Glucose (UA) Negative (Negative) mg/dL Urine Ketones Negative (Negative) Urine Blood Negative (Negative) Urine Nitrite Negative (Negative) Urine Bilirubin Negative (Negative) Urine Urobilinogen 1.0 A (0.2) mg/dL Ur Leukocyte Esterase Negative (Negative) U Hyaline Cast (Auto) NONE SEEN (0-2) /LPF Urine Microscopic RBC 0-2 (0-5) /HPF Urine Microscopic WBC 0-2 (0-5) /HPF Ur Epithelial Cells None Seen (None Seen) /HPF Urine Bacteria None Seen (None Seen) /HPF Urine Culture Reflexed NO (NO) - Progress Progress: re-examined Discussed with DrZelalem: Other (Dr. Yañez neurologist [facility]/Dr. Lord hospitalist) Will see patient in: hospital (observation) Counseled pt/family regarding: lab results, diagnosis, need for follow-up, rad results - Progress Progress Note: 10/12/24 03:34 39-year-old is evaluated in the ER for strokelike symptoms. Patient has left-sided weakness pronounced in the left upper extremity as compared to lower and facial droop with minimal dysarthria. Patient is out of the window for tPA. Prompt CT head stroke protocol is obtained which is positive for finding consistent with acute stroke. [facility] neurology consult is obtained and Dr. Yañez has seen patient, do not think patient is a candidate for any intervention at present, recommended obtaining CTA head and neck, full dose aspirin and starting him on low-dose daily aspirin, admission to hospitalist service with MRI, echo and other stroke workup. EKG is normal sinus rhythm with no acute ST elevations or arrhythmias. Other workup showed white count of 10, chemistries with mildly elevated gap of 17, lactate of 2.8, given fluid bolus. Chest x-ray is negative for any acute cardiopulmonary findings reviewed by me, official final report is pending. CTA head and neck are negative for any acute occlusive findings. Discussed with Dr. Lord hospitalist, reviewed history, workup and agreed with admission. Complexity of problem addressed: High acuity Complexity of data reviewed/analyzed: Extensive Risk of morbidity/mortality/complication with current condition: High risk (MAXWELL,DENIZ) Chest x-ray ordered. ER physician read the chest x-ray as normal. However Dr. Leung observed the chest x-ray and identified a new right infrahilar opacity. Dr. Leung notified the emergency department at approximately 8:55 AM. Emergency patient x-ray correlation form completed. Patient was admitted to the floor. Nurse Sparks contacted the RN caring for our patient. RN was informed of the chest x-ray finding. 10/12/24 09:50 (ESVIN VICK) Medical Desision Making - Independent Historian Additional History obtained from: Relative/friend - Discussion of managment Care discussed with:: specialist (Dr. Otilio WEST neurologist/Dr. Lord [facility]) Reviewed:: Test results Agreed on:: Treatment plan, place in obs Will see patient: in hospital - Diagnostic Testing Diagnostic test were ordered, analyzed, and reviewed by me: Yes Radiological Interpretation: Reviewed by me, Teleradiologist Report - Risk of complications The pt has a mod risk of morbidity or mortality based on: Need for prescription drug management The pt has a high risk of morbidity or mortality based on: Decision regarding hospitilization or escalation of hosp level of care - Departure Departure Disposition: Observation Critical Care Time: Yes Critical Care Time(excluding separately billable procedures): Critical 30-74 mins - Departure Clinical Impression: Stroke Condition: Stable
[2024-10-12] MEDS ORDERED: Nicoderm CQ 21 MG ONE (03:05)
--- NOTE | 2024-10-12 03:17 | XRAY ---
CLINICAL HISTORY: stroke left side COMPARISON: none. TECHNIQUE: CT angiography of the head was performed following the intravenous administration of [specify contrast agent and amount] of iodinated contrast material. Contiguous axial images were obtained from the base of the skull to the vertex. Coronal and sagittal reformatted images were also reviewed. One of these 3D techniques was utilized: Maximum Intensity Pixel (MIP), 3D Reconstructed Images, Volume Rendered Images, Surface Shaded Rendering. One of the following dose reduction techniques was utilized for this exam. Automated exposure control, adjustment of the mA and/or kV according to patient size, and use of iterative reconstruction. FINDINGS: Intracranial Arteries: The intracranial arteries, including the anterior cerebral arteries, middle cerebral arteries, posterior cerebral arteries, basilar artery, and vertebral arteries, are all patent without evidence of significant stenosis, aneurysm, or dissection. There is no evidence of vascular malformations. [place]: The [place] is intact with no anatomical variations or abnormalities noted. All segments are well-visualized and normal in appearance. Venous System: The visualized portions of the venous system, including the dural venous sinuses, are patent with no evidence of thrombosis. Brain Parenchyma: Ill-defined hypodense area in posterior parietal lobe is again seen and unchanged. The brain parenchyma shows no evidence of hemorrhage, or mass effect. The ventricles and sulci are normal in size and configuration. Bones: The bony structures of the skull are intact without evidence of fracture or destructive lesions. Soft Tissues: The visualized soft tissues of the head are unremarkable. Additional Findings: Hyperdense right eye globe. Mild degrees of mucosal thickenings sparing the sphenoid sinus. IMPRESSION: 1. Normal CT angiography of the head. No evidence of significant vascular abnormalities, acute infarct, or hemorrhage. 2. Hyperdense right eye globe, which might be due to vitreal hemorrhage. Please correlate clinically. Electronically Signed by: Geetha Gardner MD. (10/12/2024 03:12:20 EDT)
--- NOTE | 2024-10-12 03:17 | XRAY ---
CLINICAL HISTORY: stroke COMPARISON: None. TECHNIQUE: Axial CT angiography of the neck was done with contrast and sagittal and coronal reformats with MIP reconstructions. One of the following dose reduction techniques were utilized for this exam: Automated exposure control, adjustment of the mA and/or kV according to patient size, use of iterative reconstruction. FINDINGS: The aortic arch shows normal branching pattern. Bilateral common carotid arteries appear normal in caliber and contrast opacification. The cervical portions of bilateral internal carotid arteries appear normal in caliber and contrast opacification. Bilateral external carotid arteries appear normal in caliber and contrast opacification. The visualized portions of bilateral vertebral arteries appear normal in caliber and contrast opacification. No arteriovenous malformation was noted. Incidental mild cervical spondylodegenerative changes. IMPRESSION: Grossly unremarkable CT angiography of neck. No critical stenosis in major vessels. Electronically Signed by: Geetha Gardner MD. (10/12/2024 03:13:34 EDT)
[2024-10-12] MEDS: Sodium Chloride 0.9% 1000 ML 1,000 ML IV SCH (05:14)
--- NOTE | 2024-10-12 05:47 | PCM.HP ---
History of Present Illness - Chief Complaint Chief Complaint: STROKE Date: 10/12/24 History of Present Illness: Mr.STRAIN DESIR is a 39 year old male with schizophrenia, bipolar d/o, PTSD who presents with R facial drop. Symptoms started 10/11/24 at around 5:30p. Patient came to the ED. CTH showed parietal CVA. Patient was seen by tele-neuro. Patient deemed outside the tPA window by ED doc and tele-neuro. Hospitalist service was asked to admit. - Review of Systems Additional Findings: All other ROS is negative unless mentioned above. Medications & Allergies Home Medications: Home Medication List Buspirone HCl 5 mg [Buspar 5 mg] 10 mg PO TID 10/11/24 [History Confirmed 10/11/24] OLANZapine [Olanzapine] 10 mg PO HS 10/11/24 [History Confirmed 10/11/24] Prazosin HCl 2 mg PO HS 10/12/24 [History Confirmed 10/12/24] Trazodone HCl 100 mg PO HS 10/12/24 [History Confirmed 10/12/24] hydrOXYzine pamoate [Hydroxyzine Pamoate] 1 cap PO Q6H PRN PRN 10/12/24 [History Confirmed 10/12/24] Allergies/Adverse Reactions: Allergies Allergy/AdvReac Type Severity Reaction Status Date / Time No Known Drug Allergies Allergy Verified 10/12/24 04:27 - Past Medical History Past Medical History: Yes Neurological History: No Pertinent History ENT History: No Pertinent History Cardiac History: Hypertension Respiratory History: No Pertinent History Endocrine Medical History: No Pertinent History Musculoskelatal History: Fractures GI Medical History: GERD, Gallbladder Disease, Ulcer History: No Pertinent History Pyscho-Social History: Depression, Anxiety, Panic Disorder Male Reproductive Disorders: No Pertinent History Comment: egd x2, 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 - Past Surgical History Past Surgical History: Yes Neuro Surgical History: No Pertinent History Cardiac History: No Pertinent History Respiratory Surgery: No Pertinent History GI Surgical History: Cholecystectomy, Other Genitourinary Surgical Hx: No Pertinent History Musculskeletal Surgical Hx: Orthopedic Surgery Male Surgical History: No Pertinent History Other Surgical History: egd, repair of marti. hand fractures, repair of colar bone fracture, repair of skull fracture - Social History Smoking Status: Current every day smoker How long have you smoked: 25 Exposure to second hand smoke: No Alcohol: None Drug Use: none - Social Determinants of Health Will the patient participate in the screening: Unable to obtain Do you worry about a steady place to live?: No Do you have any problems with any of the following?: No known problems In the past 12 months,have you had to go without utilities?: No Have you or anyone in your house had to go without enough: No Transportation Issues: Yes Has anyone in your support network made you feel unsafe?: No - Physical Exam Vital Signs: Vital Signs - 24 hr Temp Pulse Resp BP BP Pulse Ox 10/12/24 05:01 95 H 16 97 10/12/24 04:29 97 10/12/24 04:10 98.7 F 100 H 18 139/81 97 10/12/24 03:33 98 10/12/24 03:00 85 19 149/93 97 10/12/24 02:30 12 136/91 97 10/12/24 02:12 97 H 17 167/106 98 10/12/24 01:30 94 H 22 121/84 97 10/12/24 01:09 87 18 142/106 97 10/12/24 01:08 98 H 24 142/106 98 10/12/24 00:30 134/84 10/12/24 00:00 70 12 139/87 97 10/11/24 23:48 89 21 131/80 96 10/11/24 23:31 87 17 201/135 97 10/11/24 23:00 92 H 14 147/82 97 10/11/24 22:33 98.6 F 92 H 16 137/90 95 General Appearance: no apparent distress Neurologic Exam: alert, oriented x 3, facial droop, other (LUE numbness) Eye Exam: PERRL/EOMI, eyes nml inspection Ears, Nose, Throat Exam: normal ENT inspection, pharynx normal Neck Exam: normal inspection, non-tender, supple, full range of motion Respiratory Exam: normal breath sounds, lungs clear Cardiovascular Exam: regular rate/rhythm, normal heart sounds, normal peripheral pulses Gastrointestinal/Abdomen Exam: soft, normal bowel sounds Extremity Exam: normal inspection Skin Exam: normal color Results - Labs Lab/Micro Results: Lab Results-Last 24 Hours 10/11/24 10/11/24 10/11/24 Range/Units 00:40 22:43 22:47 WBC (4.23-9.07) x10^3/uL RBC (4.63-6.08) x10^6/uL Hgb (13.7-17.5) g/dL Hct (40.1-51.0) % MCV (79.0-92.2) fL MCH (25.7-32.2) pg MCHC (32.3-36.5) g/dL RDW (11.6-14.4) % Plt Count (163-337) x10^3/uL MPV (9.4-12.4) fL Gran % (34.0-67.9) % Immature Gran % (Auto) (0.001-0.429) % Nucleat RBC Rel Count (0.00-0.2) % Eos # (Auto) (0.04-0.54) x10^3/uL Immature Gran # (Auto) (0.001-0.031) x10^3u/L Absolute Lymphs (auto) (1.32-3.57) x10^3/uL Absolute Monos (auto) (0.30-0.82) x10^3/uL Absolute Nucleated RBC (0.00-0.012) x10^3u/L Lymphocytes % (21.8-53.1) % Monocytes % (5.3-12.2) % Eosinophils % (0.8-7.0) % Basophils % (0.2-1.2) % Absolute Granulocytes (1.78-5.38) x10^3/uL Basophils # (0.01-0.08) x10^3/uL PT (9.4-12.5) SECONDS INR (0.8-3.0) APTT (25.1-36.5) SECONDS Sodium (135-145) mmol/L Potassium (3.5-5.1) mmol/L Chloride (98-107) mmol/L Carbon Dioxide (22-30) mmol/L Anion Gap (5-15) MEQ/L BUN (9-20) mg/dL Creatinine (0.66-1.25) mg/dL Estimated GFR ML/MIN Glucose (74-106) mg/dL POC Glucometer 144 H (74 to 106) mg/dL Lactic Acid 2.8 H (0.4-2.0) Calcium (8.4-10.2) mg/dL Magnesium (1.6-2.3) mg/dL Total Bilirubin (0.2-1.3) mg/dL AST (17-59) U/L ALT (0-50) U/L Alkaline Phosphatase (38-126) U/L Troponin I (0.000-0.033) ng/mL Serum Total Protein (6.3-8.2) g/dL Albumin (3.5-5.0) g/dL Urine Color Yellow (Yellow) Urine Appearance Clear (Clear) Urine pH 7.0 (4.6-8.0) Ur Specific Hickman 1.025 (1.005-1.030) Urine Protein Negative (Negative) Urine Glucose (UA) Negative (Negative) mg/dL Urine Ketones Negative (Negative) Urine Blood Negative (Negative) Urine Nitrite Negative (Negative) Urine Bilirubin Negative (Negative) Urine Urobilinogen 1.0 A (0.2) mg/dL Ur Leukocyte Esterase Negative (Negative) U Hyaline Cast (Auto) NONE SEEN (0-2) /LPF Urine Microscopic RBC 0-2 (0-5) /HPF Urine Microscopic WBC 0-2 (0-5) /HPF Ur Epithelial Cells None Seen (None Seen) /HPF Urine Bacteria None Seen (None Seen) /HPF Urine Culture Reflexed NO (NO) 10/11/24 10/11/24 10/11/24 Range/Units 22:52 22:52 22:52 WBC 10.9 H (4.23-9.07) x10^3/uL RBC 4.70 (4.63-6.08) x10^6/uL Hgb 15.5 (13.7-17.5) g/dL Hct 43.9 (40.1-51.0) % MCV 93.4 H (79.0-92.2) fL MCH 33.0 H (25.7-32.2) pg MCHC 35.3 (32.3-36.5) g/dL RDW 12.8 (11.6-14.4) % Plt Count 413 H (163-337) x10^3/uL MPV 10.6 (9.4-12.4) fL Gran % 52.6 (34.0-67.9) % Immature Gran % (Auto) 0.6 H (0.001-0.429) % Nucleat RBC Rel Count 0.0 (0.00-0.2) % Eos # (Auto) 0.40 (0.04-0.54) x10^3/uL Immature Gran # (Auto) 0.06 H (0.001-0.031) x10^3u/L Absolute Lymphs (auto) 3.88 H (1.32-3.57) x10^3/uL Absolute Monos (auto) 0.72 (0.30-0.82) x10^3/uL Absolute Nucleated RBC 0.00 (0.00-0.012) x10^3u/L Lymphocytes % 35.8 (21.8-53.1) % Monocytes % 6.6 (5.3-12.2) % Eosinophils % 3.7 (0.8-7.0) % Basophils % 0.7 (0.2-1.2) % Absolute Granulocytes 5.71 H (1.78-5.38) x10^3/uL Basophils # 0.08 (0.01-0.08) x10^3/uL PT 10.9 (9.4-12.5) SECONDS INR 1.00 (0.8-3.0) APTT 27.1 (25.1-36.5) SECONDS Sodium 142 (135-145) mmol/L Potassium 3.7 (3.5-5.1) mmol/L Chloride 104 (98-107) mmol/L Carbon Dioxide 24 (22-30) mmol/L Anion Gap 17.6 H (5-15) MEQ/L BUN 14 (9-20) mg/dL Creatinine 0.74 (0.66-1.25) mg/dL Estimated GFR 118.2 ML/MIN Glucose 140 H (74-106) mg/dL POC Glucometer (74 to 106) mg/dL Lactic Acid (0.4-2.0) Calcium 9.5 (8.4-10.2) mg/dL Magnesium 1.7 (1.6-2.3) mg/dL Total Bilirubin 0.40 (0.2-1.3) mg/dL AST 29 (17-59) U/L ALT 26 (0-50) U/L Alkaline Phosphatase 65 (38-126) U/L Troponin I (0.000-0.033) ng/mL Serum Total Protein 8.0 (6.3-8.2) g/dL Albumin 4.7 (3.5-5.0) g/dL Urine Color (Yellow) Urine Appearance (Clear) Urine pH (4.6-8.0) Ur Specific Hickman (1.005-1.030) Urine Protein (Negative) Urine Glucose (UA) (Negative) mg/dL Urine Ketones (Negative) Urine Blood (Negative) Urine Nitrite (Negative) Urine Bilirubin (Negative) Urine Urobilinogen (0.2) mg/dL Ur Leukocyte Esterase (Negative) U Hyaline Cast (Auto) (0-2) /LPF Urine Microscopic RBC (0-5) /HPF Urine Microscopic WBC (0-5) /HPF Ur Epithelial Cells (None Seen) /HPF Urine Bacteria (None Seen) /HPF Urine Culture Reflexed (NO) 10/11/24 10/12/24 10/12/24 Range/Units 22:54 01:01 02:28 WBC (4.23-9.07) x10^3/uL RBC (4.63-6.08) x10^6/uL Hgb (13.7-17.5) g/dL Hct (40.1-51.0) % MCV (79.0-92.2) fL MCH (25.7-32.2) pg MCHC (32.3-36.5) g/dL RDW (11.6-14.4) % Plt Count (163-337) x10^3/uL MPV (9.4-12.4) fL Gran % (34.0-67.9) % Immature Gran % (Auto) (0.001-0.429) % Nucleat RBC Rel Count (0.00-0.2) % Eos # (Auto) (0.04-0.54) x10^3/uL Immature Gran # (Auto) (0.001-0.031) x10^3u/L Absolute Lymphs (auto) (1.32-3.57) x10^3/uL Absolute Monos (auto) (0.30-0.82) x10^3/uL Absolute Nucleated RBC (0.00-0.012) x10^3u/L Lymphocytes % (21.8-53.1) % Monocytes % (5.3-12.2) % Eosinophils % (0.8-7.0) % Basophils % (0.2-1.2) % Absolute Granulocytes (1.78-5.38) x10^3/uL Basophils # (0.01-0.08) x10^3/uL PT (9.4-12.5) SECONDS INR (0.8-3.0) APTT (25.1-36.5) SECONDS Sodium (135-145) mmol/L Potassium (3.5-5.1) mmol/L Chloride (98-107) mmol/L Carbon Dioxide (22-30) mmol/L Anion Gap (5-15) MEQ/L BUN (9-20) mg/dL Creatinine (0.66-1.25) mg/dL Estimated GFR ML/MIN Glucose (74-106) mg/dL POC Glucometer (74 to 106) mg/dL Lactic Acid 1.5 (0.4-2.0) Calcium (8.4-10.2) mg/dL Magnesium (1.6-2.3) mg/dL Total Bilirubin (0.2-1.3) mg/dL AST (17-59) U/L ALT (0-50) U/L Alkaline Phosphatase (38-126) U/L Troponin I < 0.012 < 0.012 (0.000-0.033) ng/mL Serum Total Protein (6.3-8.2) g/dL Albumin (3.5-5.0) g/dL Urine Color (Yellow) Urine Appearance (Clear) Urine pH (4.6-8.0) Ur Specific Hickman (1.005-1.030) Urine Protein (Negative) Urine Glucose (UA) (Negative) mg/dL Urine Ketones (Negative) Urine Blood (Negative) Urine Nitrite (Negative) Urine Bilirubin (Negative) Urine Urobilinogen (0.2) mg/dL Ur Leukocyte Esterase (Negative) U Hyaline Cast (Auto) (0-2) /LPF Urine Microscopic RBC (0-5) /HPF Urine Microscopic WBC (0-5) /HPF Ur Epithelial Cells (None Seen) /HPF Urine Bacteria (None Seen) /HPF Urine Culture Reflexed (NO) - Radiology Impressions Radiology Exams & Impressions: Radiology Procedures Category Date Time Status CHEST 1 VIEW (PORTABLE) Stat Exams 10/11/24 22:[address] ANGIOGRAPHY NECK [CT] Stat Exams 10/12/24 01:29 Completed CTA HEAD W AND/OR WO CONTRAST [CT] Stat Exams 10/12/24 01:28 Completed ECHO W/2D AND DOPPLER [US] Routine Exams 10/12/24 04:50 Ordered HEAD WITHOUT CONTRAST [CT] Stat Exams 10/11/24 22:47 Completed MRI BRAIN W/O CONTRAST [MRI] Routine Exams 10/12/24 04:55 Ordered Assessment/Plan (1) Stroke Current Visit: Yes Status: Acute Assessment & Plan: - MRI - TTE - asa daily. F/u tele-neuro recs. I could not access recs as they were in physical chart. Code(s): I63.9 - CEREBRAL INFARCTION, UNSPECIFIED (2) Bipolar 1 disorder Current Visit: Yes Status: Acute Assessment & Plan: - continue home meds Code(s): F31.9 - BIPOLAR DISORDER, UNSPECIFIED (3) Schizophrenia Current Visit: Yes Status: Acute Assessment & Plan: - continue home meds Code(s): F20.9 - SCHIZOPHRENIA, UNSPECIFIED (4) Amphetamine abuse Current Visit: No Status: Acute Assessment & Plan: - sending for UDS Code(s): F15.10 - OTHER STIMULANT ABUSE, UNCOMPLICATED (5) On deep vein thrombosis (DVT) prophylaxis Current Visit: Yes Status: Acute Assessment & Plan: - on SCDs Code(s): Z79.899 - OTHER RESIDENTIAL PEST CONTROL TECHNICIAN (CURRENT) DRUG THERAPY Telemedicine Encounter - Telemedicine Encounter Telemedicine Encounter: "The entirety of this encounter was performed via Telemedicine" This visit was performed using real-time audio and video connection between my location and thepatients locationwith the assistance of a surrogateat the patients location. Written or verbal consent was obtained from the patient/guardian to perform this visit [facility] technology. Any patient questions regarding the telemedicine interaction were answered.
[2024-10-12 06:13] LABS: Hematocrit 38.7 % (40.1-51.0); Hemoglobin 13.4 g/dL (13.7-17.5); Mean Cell Volume 95.1 fL (79.0-92.2); Mean Corpuscular Hemoglobin 32.9 pg (25.7-32.2); Mean Corpuscular Hgb Concent. 34.6 g/dL (32.3-36.5); Mean Platelet Volume 9.9 fL (9.4-12.4); Platelet Count 343 x10^3/uL (163-337); Red Blood Count 4.07 x10^6/uL (4.63-6.08); White Blood Count 11.3 x10^3/uL (4.23-9.07)
[2024-10-12] MEDS ORDERED: MEDICATION INTERVENTION MC SCH (07:45)
--- NOTE | 2024-10-12 08:54 | XRAY ---
Indication: Stroke symptoms. Comparison: January 22, 2016 Portable chest demonstrates new hazy right infrahilar interstitial alveolar opacity. Remaining heart, left lung, and bony thorax unremarkable. Comment: Right lung finding not reported by interpreting ER clinician. Telephone report given to Dr. Tirado at 0855 hours on October 12, 2024.
[2024-10-12] MEDS ORDERED: Ativan 2 MG/1 ML VIAL ONE (09:38)
[2024-10-12] MEDS: Ativan 2 MG/1 ML VIAL IV ONE (09:39)
[2024-10-12 10:01] LABS: Amphetamine,Urine NEGATIVE (NEGATIVE); Barbiturate,Urine NEGATIVE (NEGATIVE); Benzodiazepine,Urine NEGATIVE (NEGATIVE); Cocaine,Urine NEGATIVE (NEGATIVE); Methadone,Urine NEGATIVE (NEGATIVE); Opiate,Urine POSITIVE (NEGATIVE); PCP,Urine NEGATIVE (NEGATIVE); THC,Urine NEGATIVE (NEGATIVE)
[2024-10-12 10:13] LABS: ALBUMIN 3.6 g/dL (3.5-5.0); ANION GAP 12.4 MEQ/L (5-15); BILIRUBIN,TOTAL 0.4 mg/dL (0.2-1.3); Calcium 9.2 mg/dL (8.4-10.2); Creatinine 1 0.66 mg/dL (0.66-1.25); Direct Bilirubin 0.3 mg/dL (0.0-0.4); EST GLOMERULAR FILTRATION RATE 122.4 ML/MIN; Total Protein 6.2 g/dL (6.3-8.2)
[2024-10-12] MEDS: ECOTRIN 81 MG PO SCH (10:30)
[2024-10-12] MEDS: BUSPAR 5 MG PO SCH (10:30)
[2024-10-12] MEDS: TYLENOL 325 MG PO PRN (14:16)
--- NOTE | 2024-10-12 17:20 | PCM.DS ---
Discharge Summary Date of Admission: 10/12/24 03:54 Admitting Physician: MARCIA FARRIS MD Consults: Consults on Case 10/11/24 23:15 [facility] Referral ONCE Primary Care Provider: YOU WALKER Allergies Allergies No Known Drug Allergies Allergy (Verified 10/12/24 04:27) Hospital Summary - Vitals & Intake/Output Vital Signs: Vital Signs Temperature 97.9 F 10/12/24 16:00 Pulse Rate 85 10/12/24 16:00 Respiratory Rate 16 10/12/24 16:00 Blood Pressure 138/82 10/12/24 16:00 O2 Sat by Pulse Oximetry 97 10/12/24 16:00 Intake & Output: Intake & Output 10/10/24 10/11/24 10/12/24 10/13/24 06:59 06:59 06:59 06:59 Intake Total 480 Output Total 450 Balance 30 Weight 93.7 kg - Lab Result Diagrams: 10/12/24 06:13 10/12/24 06:13 Lab Results-Last 24 Hrs: Lab Results-Last 24 Hours 10/11/24 10/11/24 10/11/24 Range/Units 00:40 00:40 22:43 WBC (4.23-9.07) x10^3/uL RBC (4.63-6.08) x10^6/uL Hgb (13.7-17.5) g/dL Hct (40.1-51.0) % MCV (79.0-92.2) fL MCH (25.7-32.2) pg MCHC (32.3-36.5) g/dL RDW (11.6-14.4) % Plt Count (163-337) x10^3/uL MPV (9.4-12.4) fL Gran % (34.0-67.9) % Immature Gran % (Auto) (0.001-0.429) % Nucleat RBC Rel Count (0.00-0.2) % Eos # (Auto) (0.04-0.54) x10^3/uL Immature Gran # (Auto) (0.001-0.031) x10^3u/L Absolute Lymphs (auto) (1.32-3.57) x10^3/uL Absolute Monos (auto) (0.30-0.82) x10^3/uL Absolute Nucleated RBC (0.00-0.012) x10^3u/L Lymphocytes % (21.8-53.1) % Monocytes % (5.3-12.2) % Eosinophils % (0.8-7.0) % Basophils % (0.2-1.2) % Absolute Granulocytes (1.78-5.38) x10^3/uL Basophils # (0.01-0.08) x10^3/uL PT (9.4-12.5) SECONDS INR (0.8-3.0) APTT (25.1-36.5) SECONDS Sodium (135-145) mmol/L Potassium (3.5-5.1) mmol/L Chloride (98-107) mmol/L Carbon Dioxide (22-30) mmol/L Anion Gap (5-15) MEQ/L BUN (9-20) mg/dL Creatinine (0.66-1.25) mg/dL Estimated GFR ML/MIN Glucose (74-106) mg/dL POC Glucometer 144 H (74 to 106) mg/dL Hemoglobin A1c (4.5-6.0) % Lactic Acid (0.4-2.0) Calcium (8.4-10.2) mg/dL Magnesium (1.6-2.3) mg/dL Total Bilirubin (0.2-1.3) mg/dL Direct Bilirubin (0.0-0.4) mg/dL AST (17-59) U/L ALT (0-50) U/L Alkaline Phosphatase (38-126) U/L Troponin (0.00-0.03) ng/mL Troponin I (0.000-0.033) ng/mL Serum Total Protein (6.3-8.2) g/dL Albumin (3.5-5.0) g/dL Triglycerides (30-150) mg/dL Cholesterol (50-200) mg/dL LDL Cholesterol (30-100) mg/dL HDL Cholesterol (40-60) mg/dL Heart Disease Risk Ratio Urine Color Yellow (Yellow) Urine Appearance Clear (Clear) Urine pH 7.0 (4.6-8.0) Ur Specific [place] 1.025 (1.005-1.030) Urine Protein Negative (Negative) Urine Glucose (UA) Negative (Negative) mg/dL Urine Ketones Negative (Negative) Urine Blood Negative (Negative) Urine Nitrite Negative (Negative) Urine Bilirubin Negative (Negative) Urine Urobilinogen 1.0 A (0.2) mg/dL Ur Leukocyte Esterase Negative (Negative) U Hyaline Cast (Auto) NONE SEEN (0-2) /LPF Urine Microscopic RBC 0-2 (0-5) /HPF Urine Microscopic WBC 0-2 (0-5) /HPF Ur Epithelial Cells None Seen (None Seen) /HPF Urine Bacteria None Seen (None Seen) /HPF Urine Culture Reflexed NO (NO) Urine Opiates Level POSITIVE A (NEGATIVE) Ur Methadone NEGATIVE (NEGATIVE) Urine Barbiturates NEGATIVE (NEGATIVE) Ur Phencyclidine (PCP) NEGATIVE (NEGATIVE) Urine Amphetamine NEGATIVE (NEGATIVE) U Benzodiazepine Level NEGATIVE (NEGATIVE) Urine Cocaine NEGATIVE (NEGATIVE) Urine Marijuana (THC) NEGATIVE (NEGATIVE) 10/11/24 10/11/24 10/11/24 Range/Units 22:47 22:52 22:52 WBC 10.9 H (4.23-9.07) x10^3/uL RBC 4.70 (4.63-6.08) x10^6/uL Hgb 15.5 (13.7-17.5) g/dL Hct 43.9 (40.1-51.0) % MCV 93.4 H (79.0-92.2) fL MCH 33.0 H (25.7-32.2) pg MCHC 35.3 (32.3-36.5) g/dL RDW 12.8 (11.6-14.4) % Plt Count 413 H (163-337) x10^3/uL MPV 10.6 (9.4-12.4) fL Gran % 52.6 (34.0-67.9) % Immature Gran % (Auto) 0.6 H (0.001-0.429) % Nucleat RBC Rel Count 0.0 (0.00-0.2) % Eos # (Auto) 0.40 (0.04-0.54) x10^3/uL Immature Gran # (Auto) 0.06 H (0.001-0.031) x10^3u/L Absolute Lymphs (auto) 3.88 H (1.32-3.57) x10^3/uL Absolute Monos (auto) 0.72 (0.30-0.82) x10^3/uL Absolute Nucleated RBC 0.00 (0.00-0.012) x10^3u/L Lymphocytes % 35.8 (21.8-53.1) % Monocytes % 6.6 (5.3-12.2) % Eosinophils % 3.7 (0.8-7.0) % Basophils % 0.7 (0.2-1.2) % Absolute Granulocytes 5.71 H (1.78-5.38) x10^3/uL Basophils # 0.08 (0.01-0.08) x10^3/uL PT (9.4-12.5) SECONDS INR (0.8-3.0) APTT (25.1-36.5) SECONDS Sodium 142 (135-145) mmol/L Potassium 3.7 (3.5-5.1) mmol/L Chloride 104 (98-107) mmol/L Carbon Dioxide 24 (22-30) mmol/L Anion Gap 17.6 H (5-15) MEQ/L BUN 14 (9-20) mg/dL Creatinine 0.74 (0.66-1.25) mg/dL Estimated GFR 118.2 ML/MIN Glucose 140 H (74-106) mg/dL POC Glucometer (74 to 106) mg/dL Hemoglobin A1c (4.5-6.0) % Lactic Acid 2.8 H (0.4-2.0) Calcium 9.5 (8.4-10.2) mg/dL Magnesium 1.7 (1.6-2.3) mg/dL Total Bilirubin 0.40 (0.2-1.3) mg/dL Direct Bilirubin (0.0-0.4) mg/dL AST 29 (17-59) U/L ALT 26 (0-50) U/L Alkaline Phosphatase 65 (38-126) U/L Troponin (0.00-0.03) ng/mL Troponin I (0.000-0.033) ng/mL Serum Total Protein 8.0 (6.3-8.2) g/dL Albumin 4.7 (3.5-5.0) g/dL Triglycerides (30-150) mg/dL Cholesterol (50-200) mg/dL LDL Cholesterol (30-100) mg/dL HDL Cholesterol (40-60) mg/dL Heart Disease Risk Ratio Urine Color (Yellow) Urine Appearance (Clear) Urine pH (4.6-8.0) Ur Specific [place] (1.005-1.030) Urine Protein (Negative) Urine Glucose (UA) (Negative) mg/dL Urine Ketones (Negative) Urine Blood (Negative) Urine Nitrite (Negative) Urine Bilirubin (Negative) Urine Urobilinogen (0.2) mg/dL Ur Leukocyte Esterase (Negative) U Hyaline Cast (Auto) (0-2) /LPF Urine Microscopic RBC (0-5) /HPF Urine Microscopic WBC (0-5) /HPF Ur Epithelial Cells (None Seen) /HPF Urine Bacteria (None Seen) /HPF Urine Culture Reflexed (NO) Urine Opiates Level (NEGATIVE) Ur Methadone (NEGATIVE) Urine Barbiturates (NEGATIVE) Ur Phencyclidine (PCP) (NEGATIVE) Urine Amphetamine (NEGATIVE) U Benzodiazepine Level (NEGATIVE) Urine Cocaine (NEGATIVE) Urine Marijuana (THC) (NEGATIVE) 10/11/24 10/11/24 10/12/24 Range/Units 22:52 22:54 01:01 WBC (4.23-9.07) x10^3/uL RBC (4.63-6.08) x10^6/uL Hgb (13.7-17.5) g/dL Hct (40.1-51.0) % MCV (79.0-92.2) fL MCH (25.7-32.2) pg MCHC (32.3-36.5) g/dL RDW (11.6-14.4) % Plt Count (163-337) x10^3/uL MPV (9.4-12.4) fL Gran % (34.0-67.9) % Immature Gran % (Auto) (0.001-0.429) % Nucleat RBC Rel Count (0.00-0.2) % Eos # (Auto) (0.04-0.54) x10^3/uL Immature Gran # (Auto) (0.001-0.031) x10^3u/L Absolute Lymphs (auto) (1.32-3.57) x10^3/uL Absolute Monos (auto) (0.30-0.82) x10^3/uL Absolute Nucleated RBC (0.00-0.012) x10^3u/L Lymphocytes % (21.8-53.1) % Monocytes % (5.3-12.2) % Eosinophils % (0.8-7.0) % Basophils % (0.2-1.2) % Absolute Granulocytes (1.78-5.38) x10^3/uL Basophils # (0.01-0.08) x10^3/uL PT 10.9 (9.4-12.5) SECONDS INR 1.00 (0.8-3.0) APTT 27.1 (25.1-36.5) SECONDS Sodium (135-145) mmol/L Potassium (3.5-5.1) mmol/L Chloride (98-107) mmol/L Carbon Dioxide (22-30) mmol/L Anion Gap (5-15) MEQ/L BUN (9-20) mg/dL Creatinine (0.66-1.25) mg/dL Estimated GFR ML/MIN Glucose (74-106) mg/dL POC Glucometer (74 to 106) mg/dL Hemoglobin A1c (4.5-6.0) % Lactic Acid 1.5 (0.4-2.0) Calcium (8.4-10.2) mg/dL Magnesium (1.6-2.3) mg/dL Total Bilirubin (0.2-1.3) mg/dL Direct Bilirubin (0.0-0.4) mg/dL AST (17-59) U/L ALT (0-50) U/L Alkaline Phosphatase (38-126) U/L Troponin (0.00-0.03) ng/mL Troponin I < 0.012 (0.000-0.033) ng/mL Serum Total Protein (6.3-8.2) g/dL Albumin (3.5-5.0) g/dL Triglycerides (30-150) mg/dL Cholesterol (50-200) mg/dL LDL Cholesterol (30-100) mg/dL HDL Cholesterol (40-60) mg/dL Heart Disease Risk Ratio Urine Color (Yellow) Urine Appearance (Clear) Urine pH (4.6-8.0) Ur Specific [place] (1.005-1.030) Urine Protein (Negative) Urine Glucose (UA) (Negative) mg/dL Urine Ketones (Negative) Urine Blood (Negative) Urine Nitrite (Negative) Urine Bilirubin (Negative) Urine Urobilinogen (0.2) mg/dL Ur Leukocyte Esterase (Negative) U Hyaline Cast (Auto) (0-2) /LPF Urine Microscopic RBC (0-5) /HPF Urine Microscopic WBC (0-5) /HPF Ur Epithelial Cells (None Seen) /HPF Urine Bacteria (None Seen) /HPF Urine Culture Reflexed (NO) Urine Opiates Level (NEGATIVE) Ur Methadone (NEGATIVE) Urine Barbiturates (NEGATIVE) Ur Phencyclidine (PCP) (NEGATIVE) Urine Amphetamine (NEGATIVE) U Benzodiazepine Level (NEGATIVE) Urine Cocaine (NEGATIVE) Urine Marijuana (THC) (NEGATIVE) 10/12/24 10/12/24 10/12/24 Range/Units 02:28 06:13 06:13 WBC 11.3 H (4.23-9.07) x10^3/uL RBC 4.07 L (4.63-6.08) x10^6/uL Hgb 13.4 L (13.7-17.5) g/dL Hct 38.7 L (40.1-51.0) % MCV 95.1 H (79.0-92.2) fL MCH 32.9 H (25.7-32.2) pg MCHC 34.6 (32.3-36.5) g/dL RDW 13.0 (11.6-14.4) % Plt Count 343 H (163-337) x10^3/uL MPV 9.9 (9.4-12.4) fL Gran % (34.0-67.9) % Immature Gran % (Auto) (0.001-0.429) % Nucleat RBC Rel Count (0.00-0.2) % Eos # (Auto) (0.04-0.54) x10^3/uL Immature Gran # (Auto) (0.001-0.031) x10^3u/L Absolute Lymphs (auto) (1.32-3.57) x10^3/uL Absolute Monos (auto) (0.30-0.82) x10^3/uL Absolute Nucleated RBC (0.00-0.012) x10^3u/L Lymphocytes % (21.8-53.1) % Monocytes % (5.3-12.2) % Eosinophils % (0.8-7.0) % Basophils % (0.2-1.2) % Absolute Granulocytes (1.78-5.38) x10^3/uL Basophils # (0.01-0.08) x10^3/uL PT (9.4-12.5) SECONDS INR (0.8-3.0) APTT (25.1-36.5) SECONDS Sodium (135-145) mmol/L Potassium (3.5-5.1) mmol/L Chloride (98-107) mmol/L Carbon Dioxide (22-30) mmol/L Anion Gap (5-15) MEQ/L BUN (9-20) mg/dL Creatinine (0.66-1.25) mg/dL Estimated GFR ML/MIN Glucose (74-106) mg/dL POC Glucometer (74 to 106) mg/dL Hemoglobin A1c (4.5-6.0) % Lactic Acid (0.4-2.0) Calcium (8.4-10.2) mg/dL Magnesium (1.6-2.3) mg/dL Total Bilirubin (0.2-1.3) mg/dL Direct Bilirubin (0.0-0.4) mg/dL AST (17-59) U/L ALT (0-50) U/L Alkaline Phosphatase (38-126) U/L Troponin 0.00 (0.00-0.03) ng/mL Troponin I < 0.012 Cancelled (0.000-0.033) ng/mL Serum Total Protein (6.3-8.2) g/dL Albumin (3.5-5.0) g/dL Triglycerides (30-150) mg/dL Cholesterol (50-200) mg/dL LDL Cholesterol (30-100) mg/dL HDL Cholesterol (40-60) mg/dL Heart Disease Risk Ratio Urine Color (Yellow) Urine Appearance (Clear) Urine pH (4.6-8.0) Ur Specific [place] (1.005-1.030) Urine Protein (Negative) Urine Glucose (UA) (Negative) mg/dL Urine Ketones (Negative) Urine Blood (Negative) Urine Nitrite (Negative) Urine Bilirubin (Negative) Urine Urobilinogen (0.2) mg/dL Ur Leukocyte Esterase (Negative) U Hyaline Cast (Auto) (0-2) /LPF Urine Microscopic RBC (0-5) /HPF Urine Microscopic WBC (0-5) /HPF Ur Epithelial Cells (None Seen) /HPF Urine Bacteria (None Seen) /HPF Urine Culture Reflexed (NO) Urine Opiates Level (NEGATIVE) Ur Methadone (NEGATIVE) Urine Barbiturates (NEGATIVE) Ur Phencyclidine (PCP) (NEGATIVE) Urine Amphetamine (NEGATIVE) U Benzodiazepine Level (NEGATIVE) Urine Cocaine (NEGATIVE) Urine Marijuana (THC) (NEGATIVE) 10/12/24 10/12/24 10/12/24 Range/Units 06:13 06:13 06:13 WBC (4.23-9.07) x10^3/uL RBC (4.63-6.08) x10^6/uL Hgb (13.7-17.5) g/dL Hct (40.1-51.0) % MCV (79.0-92.2) fL MCH (25.7-32.2) pg MCHC (32.3-36.5) g/dL RDW (11.6-14.4) % Plt Count (163-337) x10^3/uL MPV (9.4-12.4) fL Gran % (34.0-67.9) % Immature Gran % (Auto) (0.001-0.429) % Nucleat RBC Rel Count (0.00-0.2) % Eos # (Auto) (0.04-0.54) x10^3/uL Immature Gran # (Auto) (0.001-0.031) x10^3u/L Absolute Lymphs (auto) (1.32-3.57) x10^3/uL Absolute Monos (auto) (0.30-0.82) x10^3/uL Absolute Nucleated RBC (0.00-0.012) x10^3u/L Lymphocytes % (21.8-53.1) % Monocytes % (5.3-12.2) % Eosinophils % (0.8-7.0) % Basophils % (0.2-1.2) % Absolute Granulocytes (1.78-5.38) x10^3/uL Basophils # (0.01-0.08) x10^3/uL PT (9.4-12.5) SECONDS INR (0.8-3.0) APTT (25.1-36.5) SECONDS Sodium 139 (135-145) mmol/L Potassium 4.0 (3.5-5.1) mmol/L Chloride 110 H (98-107) mmol/L Carbon Dioxide 21 L (22-30) mmol/L Anion Gap 12.4 (5-15) MEQ/L BUN 10 (9-20) mg/dL Creatinine 0.66 (0.66-1.25) mg/dL Estimated GFR 122.4 ML/MIN Glucose 102 (74-106) mg/dL POC Glucometer (74 to 106) mg/dL Hemoglobin A1c 5.17 (4.5-6.0) % Lactic Acid (0.4-2.0) Calcium 9.2 (8.4-10.2) mg/dL Magnesium (1.6-2.3) mg/dL Total Bilirubin 0.40 (0.2-1.3) mg/dL Direct Bilirubin 0.3 (0.0-0.4) mg/dL AST 20 (17-59) U/L ALT 19 (0-50) U/L Alkaline Phosphatase 66 (38-126) U/L Troponin (0.00-0.03) ng/mL Troponin I (0.000-0.033) ng/mL Serum Total Protein 6.2 L (6.3-8.2) g/dL Albumin 3.6 (3.5-5.0) g/dL Triglycerides 104 (30-150) mg/dL Cholesterol 187 (50-200) mg/dL LDL Cholesterol 124 H (30-100) mg/dL HDL Cholesterol 38 L (40-60) mg/dL Heart Disease Risk Ratio 5.0 Urine Color (Yellow) Urine Appearance (Clear) Urine pH (4.6-8.0) Ur Specific [place] (1.005-1.030) Urine Protein (Negative) Urine Glucose (UA) (Negative) mg/dL Urine Ketones (Negative) Urine Blood (Negative) Urine Nitrite (Negative) Urine Bilirubin (Negative) Urine Urobilinogen (0.2) mg/dL Ur Leukocyte Esterase (Negative) U Hyaline Cast (Auto) (0-2) /LPF Urine Microscopic RBC (0-5) /HPF Urine Microscopic WBC (0-5) /HPF Ur Epithelial Cells (None Seen) /HPF Urine Bacteria (None Seen) /HPF Urine Culture Reflexed (NO) Urine Opiates Level (NEGATIVE) Ur Methadone (NEGATIVE) Urine Barbiturates (NEGATIVE) Ur Phencyclidine (PCP) (NEGATIVE) Urine Amphetamine (NEGATIVE) U Benzodiazepine Level (NEGATIVE) Urine Cocaine (NEGATIVE) Urine Marijuana (THC) (NEGATIVE) - Radiology Exams Ordered Rad Exams-Entire Visit: Radiology Procedures Category Date Time Status CHEST 1 VIEW (PORTABLE) Stat Exams 10/11/24 22:[address] ANGIOGRAPHY NECK [CT] Stat Exams 10/12/24 01:29 Completed CTA HEAD W AND/OR WO CONTRAST [CT] Stat Exams 10/12/24 01:28 Completed ECHO W/2D AND DOPPLER [US] Routine Exams 10/12/24 04:50 Taken HEAD WITHOUT CONTRAST [CT] Stat Exams 10/11/24 22:47 Completed - Procedures and Test Procedures and Tests throughout Hospitalization: Therapy Orders & Screens 10/12/24 04:06 Respiratory Therapy Consult ONCE Comment: Reason For Exam: 10/12/24 04:23 OT Screen per Nursing Assess ONCE Comment: Protocol Order Physician Instructions: Greater than 3 points order OT Admission Screening Reason For Exam: Triggered on Admission Diagnosis: STROKE Open Wound/Cellutlitis/Pressure Ulcers: No Acute Fx/ORIF/Change in wt bearing status: No Severe MUSCULOSKELETAL pain: No ADL Dysfunction: Yes Acute CVA w/Hemiparesis/Hemiplegia: Yes Decreased Functional Mobility/Strength: Yes Sprain/Strain: No Acute Post-op Mobility Dysfunction: No Total Points: 9 PT Screen per Nursing Assess ONCE Comment: Protocol Order Physician Instructions: Greater than 3 points order PT Admission Screenin Reason For Exam: Triggered on Admission Diagnosis: STROKE Open Wound/Cellutlitis/Pressure Ulcers: No Acute Fx/ORIF/Change in wt bearing status: No Severe MUSCULOSKELETAL pain: No ADL Dysfunction: Yes Acute CVA w/Hemiparesis/Hemiplegia: Yes Decreased Functional Mobility/Strength: Yes Sprain/Strain: No Acute Post-op Mobility Dysfunction: No Total Points: 9 Smoking Cessation Education ONCE Comment: Diagnosis: STROKE Smoking Status: Current every day smoker How long have you smoked: 25 Have you smoked in the past 12 months: Yes Approximately how many cigarettes per day: 1ppd Do you dip or chew tobacco: No If,Former Smoker,when did you quit: [address] Screen per Nursing Assess ONCE Comment: Protocol Order Physician Instructions: Greater than [address] Admission Screening Reason For Exam: Triggered on Admission Diagnosis: STROKE CVA/Dysphagia/Aphasia: Yes Cognitive Deficits: No Dehydration/Nutrition Deficit: No Reflux: No Oral-Motor Difficulties: No Pneumonia: No Custodial Resident: No Total Points: 5 10/12/24 04:52 PT Eval & Treat (MD Order) ROUTINE Reason for Eval:: CVA Diagnosis: STROKE Final Diagnosis/Problem List - Final Discharge Diagnosis/Problem (1) Stroke Current Visit: Yes Status: Acute Code(s): I63.9 - CEREBRAL INFARCTION, UNSPECIFIED (2) Bipolar 1 disorder Current Visit: Yes Status: Acute Code(s): F31.9 - BIPOLAR DISORDER, UNSPECIFIED (3) Schizophrenia Current Visit: Yes Status: Acute Code(s): F20.9 - SCHIZOPHRENIA, UNSPECIFIED (4) Amphetamine abuse Current Visit: No Status: Acute Code(s): F15.10 - OTHER STIMULANT ABUSE, UNCOMPLICATED (5) On deep vein thrombosis (DVT) prophylaxis Current Visit: Yes Status: Acute Code(s): Z79.899 - OTHER USP (CURRENT) DRUG THERAPY Telemedicine Encounter - Telemedicine Encounter Telemedicine Encounter: "The entirety of this encounter was performed via Telemedicine" This visit was performed using real-time audio and video connection between my location and thepatients locationwith the assistance of a surrogateat the patients location. Written or verbal consent was obtained from the patient/guardian to perform this visit [email or web address] technology. Any patient questions regarding the telemedicine interaction were answered. - Discharge Disposition: Home, Self-Care Condition: Stable Prescriptions: No Action OLANZapine [Olanzapine] 10 mg PO HS Buspirone HCl 5 mg [Buspar 5 mg] 10 mg PO TID hydrOXYzine pamoate [Hydroxyzine Pamoate] 1 cap PO Q6H PRN PRN PRN Reason: Anxiety Prazosin HCl 2 mg PO HS Trazodone HCl 100 mg PO HS Outpatient Orders: Occupational Therapy Eval & Treat Facility: [facility], Location: OCCUPATIONAL THERAPY Additional Instructions: YOUR FIRST APT WITH [facility] O[facility] IS 10/19/24@1 PM Follow up with: YOU WALKER [Primary Care Provider] -
--- NOTE | 2024-10-12 19:11 | PCM.NOTE ---
Date and Time: 10/12/241904 Subjective Assessment: 39yo male PMH schizophrenia, bipolar, PTSD presents with left sided weakness outside of TNK window found to have right parietal hypodensity. CTA unrevealing. Symptoms are persistent. Never had event like this previously No hx blood clots. TTE EF 55%, bubble study cannot be obtained at facility. Was not able to tolerate MRI depsite 3 attempts and Ativan d/t claustrophobia. Location: Brain Quality: stroke Severity: Mild-mod Timing: Constant Context: Outside of TNK window Associated: none Modifying: none SH: denies drug use FH: noncontributory Objective Exam - Vital Signs Vital Signs: Vital Signs - 24 hr 10/11/24 10/11/24 10/11/24 22:33 23:00 23:31 Temperature 98.6 F Pulse Rate 92 H 92 H 87 Respiratory 16 14 17 Rate Blood Pressure 201/135 Blood Pressure 137/90 147/82 [Right Arm] O2 Sat by Pulse 95 97 97 Oximetry 10/11/24 10/12/24 10/12/24 23:48 00:00 00:30 Temperature Pulse Rate 89 70 Respiratory 21 12 Rate Blood Pressure 131/80 139/87 134/84 Blood Pressure [Right Arm] O2 Sat by Pulse 96 97 Oximetry 10/12/24 10/12/24 10/12/24 01:08 01:09 01:30 Temperature Pulse Rate 98 H 87 94 H Respiratory 24 18 22 Rate Blood Pressure 142/106 142/106 121/84 Blood Pressure [Right Arm] O2 Sat by Pulse 98 97 97 Oximetry 10/12/24 10/12/24 10/12/24 02:12 02:30 03:00 Temperature Pulse Rate 97 H 85 Respiratory 17 12 19 Rate Blood Pressure 167/106 136/91 149/93 Blood Pressure [Right Arm] O2 Sat by Pulse 98 97 97 Oximetry 10/12/24 10/12/24 10/12/24 04:10 04:29 05:01 Temperature 98.7 F Pulse Rate 100 H 95 H Respiratory 18 16 Rate Blood Pressure Blood Pressure 139/81 [Right Arm] O2 Sat by Pulse 97 97 97 Oximetry 10/12/24 10/12/24 10/12/24 07:00 07:17 08:00 Temperature 98.6 F Pulse Rate 88 Respiratory 16 Rate Blood Pressure Blood Pressure 135/67 [Right Arm] O2 Sat by Pulse 98 95 95 Oximetry 10/12/24 10/12/24 10/12/24 11:13 16:00 17:02 Temperature 98.0 F 97.9 F Pulse Rate 86 85 Respiratory 16 16 Rate Blood Pressure Blood Pressure 142/86 138/82 [Right Arm] O2 Sat by Pulse 96 97 97 Oximetry - Physical Exam Tele-Neuro Physical Exam (Narrative): A&Ox3, fluent speech with intact comprehension, no dysarthria. EOMI. Mild left nasolabial flattening, left arm drift not to bed, no drift in legs or right arm. - NIHSS Stroke Scale Date Completed: 10/12/24 Time Stroke Scale Completed: 16:30 Level of Consciousness: Alert Level of Questions: Answers both correctly LOC Commands: Obeys both correctly Best Gaze: Normal Visual: No visual loss Facial Palsy: Minor Motor Arm-Left: Drift Motor Arm-Right: No Drift Motor Leg-Left: No Drift Motor Leg Right: No Drift Limb Ataxia: Absent Sensory: Normal Best Language: No apashia Dysarthria: Normal aticulation Extinction and Inattention: No Neglect Stroke Risk Level: 2 Objective Data - Labs Lab/Micro Results: Lab Results-Last 24 Hours 10/11/24 10/11/24 10/11/24 Range/Units 00:40 00:40 22:43 WBC (4.23-9.07) x10^3/uL RBC (4.63-6.08) x10^6/uL Hgb (13.7-17.5) g/dL Hct (40.1-51.0) % MCV (79.0-92.2) fL MCH (25.7-32.2) pg MCHC (32.3-36.5) g/dL RDW (11.6-14.4) % Plt Count (163-337) x10^3/uL MPV (9.4-12.4) fL Gran % (34.0-67.9) % Immature Gran % (Auto) (0.001-0.429) % Nucleat RBC Rel Count (0.00-0.2) % Eos # (Auto) (0.04-0.54) x10^3/uL Immature Gran # (Auto) (0.001-0.031) x10^3u/L Absolute Lymphs (auto) (1.32-3.57) x10^3/uL Absolute Monos (auto) (0.30-0.82) x10^3/uL Absolute Nucleated RBC (0.00-0.012) x10^3u/L Lymphocytes % (21.8-53.1) % Monocytes % (5.3-12.2) % Eosinophils % (0.8-7.0) % Basophils % (0.2-1.2) % Absolute Granulocytes (1.78-5.38) x10^3/uL Basophils # (0.01-0.08) x10^3/uL PT (9.4-12.5) SECONDS INR (0.8-3.0) APTT (25.1-36.5) SECONDS Sodium (135-145) mmol/L Potassium (3.5-5.1) mmol/L Chloride (98-107) mmol/L Carbon Dioxide (22-30) mmol/L Anion Gap (5-15) MEQ/L BUN (9-20) mg/dL Creatinine (0.66-1.25) mg/dL Estimated GFR ML/MIN Glucose (74-106) mg/dL POC Glucometer 144 H (74 to 106) mg/dL Hemoglobin A1c (4.5-6.0) % Lactic Acid (0.4-2.0) Calcium (8.4-10.2) mg/dL Magnesium (1.6-2.3) mg/dL Total Bilirubin (0.2-1.3) mg/dL Direct Bilirubin (0.0-0.4) mg/dL AST (17-59) U/L ALT (0-50) U/L Alkaline Phosphatase (38-126) U/L Troponin (0.00-0.03) ng/mL Troponin I (0.000-0.033) ng/mL Serum Total Protein (6.3-8.2) g/dL Albumin (3.5-5.0) g/dL Triglycerides (30-150) mg/dL Cholesterol (50-200) mg/dL LDL Cholesterol (30-100) mg/dL HDL Cholesterol (40-60) mg/dL Heart Disease Risk Ratio Urine Color Yellow (Yellow) Urine Appearance Clear (Clear) Urine pH 7.0 (4.6-8.0) Ur Specific [place] 1.025 (1.005-1.030) Urine Protein Negative (Negative) Urine Glucose (UA) Negative (Negative) mg/dL Urine Ketones Negative (Negative) Urine Blood Negative (Negative) Urine Nitrite Negative (Negative) Urine Bilirubin Negative (Negative) Urine Urobilinogen 1.0 A (0.2) mg/dL Ur Leukocyte Esterase Negative (Negative) U Hyaline Cast (Auto) NONE SEEN (0-2) /LPF Urine Microscopic RBC 0-2 (0-5) /HPF Urine Microscopic WBC 0-2 (0-5) /HPF Ur Epithelial Cells None Seen (None Seen) /HPF Urine Bacteria None Seen (None Seen) /HPF Urine Culture Reflexed NO (NO) Urine Opiates Level POSITIVE A (NEGATIVE) Ur Methadone NEGATIVE (NEGATIVE) Urine Barbiturates NEGATIVE (NEGATIVE) Ur Phencyclidine (PCP) NEGATIVE (NEGATIVE) Urine Amphetamine NEGATIVE (NEGATIVE) U Benzodiazepine Level NEGATIVE (NEGATIVE) Urine Cocaine NEGATIVE (NEGATIVE) Urine Marijuana (THC) NEGATIVE (NEGATIVE) 10/11/24 10/11/24 10/11/24 Range/Units 22:47 22:52 22:52 WBC 10.9 H (4.23-9.07) x10^3/uL RBC 4.70 (4.63-6.08) x10^6/uL Hgb 15.5 (13.7-17.5) g/dL Hct 43.9 (40.1-51.0) % MCV 93.4 H (79.0-92.2) fL MCH 33.0 H (25.7-32.2) pg MCHC 35.3 (32.3-36.5) g/dL RDW 12.8 (11.6-14.4) % Plt Count 413 H (163-337) x10^3/uL MPV 10.6 (9.4-12.4) fL Gran % 52.6 (34.0-67.9) % Immature Gran % (Auto) 0.6 H (0.001-0.429) % Nucleat RBC Rel Count 0.0 (0.00-0.2) % Eos # (Auto) 0.40 (0.04-0.54) x10^3/uL Immature Gran # (Auto) 0.06 H (0.001-0.031) x10^3u/L Absolute Lymphs (auto) 3.88 H (1.32-3.57) x10^3/uL Absolute Monos (auto) 0.72 (0.30-0.82) x10^3/uL Absolute Nucleated RBC 0.00 (0.00-0.012) x10^3u/L Lymphocytes % 35.8 (21.8-53.1) % Monocytes % 6.6 (5.3-12.2) % Eosinophils % 3.7 (0.8-7.0) % Basophils % 0.7 (0.2-1.2) % Absolute Granulocytes 5.71 H (1.78-5.38) x10^3/uL Basophils # 0.08 (0.01-0.08) x10^3/uL PT (9.4-12.5) SECONDS INR (0.8-3.0) APTT (25.1-36.5) SECONDS Sodium 142 (135-145) mmol/L Potassium 3.7 (3.5-5.1) mmol/L Chloride 104 (98-107) mmol/L Carbon Dioxide 24 (22-30) mmol/L Anion Gap 17.6 H (5-15) MEQ/L BUN 14 (9-20) mg/dL Creatinine 0.74 (0.66-1.25) mg/dL Estimated GFR 118.2 ML/MIN Glucose 140 H (74-106) mg/dL POC Glucometer (74 to 106) mg/dL Hemoglobin A1c (4.5-6.0) % Lactic Acid 2.8 H (0.4-2.0) Calcium 9.5 (8.4-10.2) mg/dL Magnesium 1.7 (1.6-2.3) mg/dL Total Bilirubin 0.40 (0.2-1.3) mg/dL Direct Bilirubin (0.0-0.4) mg/dL AST 29 (17-59) U/L ALT 26 (0-50) U/L Alkaline Phosphatase 65 (38-126) U/L Troponin (0.00-0.03) ng/mL Troponin I (0.000-0.033) ng/mL Serum Total Protein 8.0 (6.3-8.2) g/dL Albumin 4.7 (3.5-5.0) g/dL Triglycerides (30-150) mg/dL Cholesterol (50-200) mg/dL LDL Cholesterol (30-100) mg/dL HDL Cholesterol (40-60) mg/dL Heart Disease Risk Ratio Urine Color (Yellow) Urine Appearance (Clear) Urine pH (4.6-8.0) Ur Specific [place] (1.005-1.030) Urine Protein (Negative) Urine Glucose (UA) (Negative) mg/dL Urine Ketones (Negative) Urine Blood (Negative) Urine Nitrite (Negative) Urine Bilirubin (Negative) Urine Urobilinogen (0.2) mg/dL Ur Leukocyte Esterase (Negative) U Hyaline Cast (Auto) (0-2) /LPF Urine Microscopic RBC (0-5) /HPF Urine Microscopic WBC (0-5) /HPF Ur Epithelial Cells (None Seen) /HPF Urine Bacteria (None Seen) /HPF Urine Culture Reflexed (NO) Urine Opiates Level (NEGATIVE) Ur Methadone (NEGATIVE) Urine Barbiturates (NEGATIVE) Ur Phencyclidine (PCP) (NEGATIVE) Urine Amphetamine (NEGATIVE) U Benzodiazepine Level (NEGATIVE) Urine Cocaine (NEGATIVE) Urine Marijuana (THC) (NEGATIVE) 10/11/24 10/11/24 10/12/24 Range/Units 22:52 22:54 01:01 WBC (4.23-9.07) x10^3/uL RBC (4.63-6.08) x10^6/uL Hgb (13.7-17.5) g/dL Hct (40.1-51.0) % MCV (79.0-92.2) fL MCH (25.7-32.2) pg MCHC (32.3-36.5) g/dL RDW (11.6-14.4) % Plt Count (163-337) x10^3/uL MPV (9.4-12.4) fL Gran % (34.0-67.9) % Immature Gran % (Auto) (0.001-0.429) % Nucleat RBC Rel Count (0.00-0.2) % Eos # (Auto) (0.04-0.54) x10^3/uL Immature Gran # (Auto) (0.001-0.031) x10^3u/L Absolute Lymphs (auto) (1.32-3.57) x10^3/uL Absolute Monos (auto) (0.30-0.82) x10^3/uL Absolute Nucleated RBC (0.00-0.012) x10^3u/L Lymphocytes % (21.8-53.1) % Monocytes % (5.3-12.2) % Eosinophils % (0.8-7.0) % Basophils % (0.2-1.2) % Absolute Granulocytes (1.78-5.38) x10^3/uL Basophils # (0.01-0.08) x10^3/uL PT 10.9 (9.4-12.5) SECONDS INR 1.00 (0.8-3.0) APTT 27.1 (25.1-36.5) SECONDS Sodium (135-145) mmol/L Potassium (3.5-5.1) mmol/L Chloride (98-107) mmol/L Carbon Dioxide (22-30) mmol/L Anion Gap (5-15) MEQ/L BUN (9-20) mg/dL Creatinine (0.66-1.25) mg/dL Estimated GFR ML/MIN Glucose (74-106) mg/dL POC Glucometer (74 to 106) mg/dL Hemoglobin A1c (4.5-6.0) % Lactic Acid 1.5 (0.4-2.0) Calcium (8.4-10.2) mg/dL Magnesium (1.6-2.3) mg/dL Total Bilirubin (0.2-1.3) mg/dL Direct Bilirubin (0.0-0.4) mg/dL AST (17-59) U/L ALT (0-50) U/L Alkaline Phosphatase (38-126) U/L Troponin (0.00-0.03) ng/mL Troponin I < 0.012 (0.000-0.033) ng/mL Serum Total Protein (6.3-8.2) g/dL Albumin (3.5-5.0) g/dL Triglycerides (30-150) mg/dL Cholesterol (50-200) mg/dL LDL Cholesterol (30-100) mg/dL HDL Cholesterol (40-60) mg/dL Heart Disease Risk Ratio Urine Color (Yellow) Urine Appearance (Clear) Urine pH (4.6-8.0) Ur Specific [place] (1.005-1.030) Urine Protein (Negative) Urine Glucose (UA) (Negative) mg/dL Urine Ketones (Negative) Urine Blood (Negative) Urine Nitrite (Negative) Urine Bilirubin (Negative) Urine Urobilinogen (0.2) mg/dL Ur Leukocyte Esterase (Negative) U Hyaline Cast (Auto) (0-2) /LPF Urine Microscopic RBC (0-5) /HPF Urine Microscopic WBC (0-5) /HPF Ur Epithelial Cells (None Seen) /HPF Urine Bacteria (None Seen) /HPF Urine Culture Reflexed (NO) Urine Opiates Level (NEGATIVE) Ur Methadone (NEGATIVE) Urine Barbiturates (NEGATIVE) Ur Phencyclidine (PCP) (NEGATIVE) Urine Amphetamine (NEGATIVE) U Benzodiazepine Level (NEGATIVE) Urine Cocaine (NEGATIVE) Urine Marijuana (THC) (NEGATIVE) 10/12/24 10/12/24 10/12/24 Range/Units 02:28 06:13 06:13 WBC 11.3 H (4.23-9.07) x10^3/uL RBC 4.07 L (4.63-6.08) x10^6/uL Hgb 13.4 L (13.7-17.5) g/dL Hct 38.7 L (40.1-51.0) % MCV 95.1 H (79.0-92.2) fL MCH 32.9 H (25.7-32.2) pg MCHC 34.6 (32.3-36.5) g/dL RDW 13.0 (11.6-14.4) % Plt Count 343 H (163-337) x10^3/uL MPV 9.9 (9.4-12.4) fL Gran % (34.0-67.9) % Immature Gran % (Auto) (0.001-0.429) % Nucleat RBC Rel Count (0.00-0.2) % Eos # (Auto) (0.04-0.54) x10^3/uL Immature Gran # (Auto) (0.001-0.031) x10^3u/L Absolute Lymphs (auto) (1.32-3.57) x10^3/uL Absolute Monos (auto) (0.30-0.82) x10^3/uL Absolute Nucleated RBC (0.00-0.012) x10^3u/L Lymphocytes % (21.8-53.1) % Monocytes % (5.3-12.2) % Eosinophils % (0.8-7.0) % Basophils % (0.2-1.2) % Absolute Granulocytes (1.78-5.38) x10^3/uL Basophils # (0.01-0.08) x10^3/uL PT (9.4-12.5) SECONDS INR (0.8-3.0) APTT (25.1-36.5) SECONDS Sodium (135-145) mmol/L Potassium (3.5-5.1) mmol/L Chloride (98-107) mmol/L Carbon Dioxide (22-30) mmol/L Anion Gap (5-15) MEQ/L BUN (9-20) mg/dL Creatinine (0.66-1.25) mg/dL Estimated GFR ML/MIN Glucose (74-106) mg/dL POC Glucometer (74 to 106) mg/dL Hemoglobin A1c (4.5-6.0) % Lactic Acid (0.4-2.0) Calcium (8.4-10.2) mg/dL Magnesium (1.6-2.3) mg/dL Total Bilirubin (0.2-1.3) mg/dL Direct Bilirubin (0.0-0.4) mg/dL AST (17-59) U/L ALT (0-50) U/L Alkaline Phosphatase (38-126) U/L Troponin 0.00 (0.00-0.03) ng/mL Troponin I < 0.012 Cancelled (0.000-0.033) ng/mL Serum Total Protein (6.3-8.2) g/dL Albumin (3.5-5.0) g/dL Triglycerides (30-150) mg/dL Cholesterol (50-200) mg/dL LDL Cholesterol (30-100) mg/dL HDL Cholesterol (40-60) mg/dL Heart Disease Risk Ratio Urine Color (Yellow) Urine Appearance (Clear) Urine pH (4.6-8.0) Ur Specific [place] (1.005-1.030) Urine Protein (Negative) Urine Glucose (UA) (Negative) mg/dL Urine Ketones (Negative) Urine Blood (Negative) Urine Nitrite (Negative) Urine Bilirubin (Negative) Urine Urobilinogen (0.2) mg/dL Ur Leukocyte Esterase (Negative) U Hyaline Cast (Auto) (0-2) /LPF Urine Microscopic RBC (0-5) /HPF Urine Microscopic WBC (0-5) /HPF Ur Epithelial Cells (None Seen) /HPF Urine Bacteria (None Seen) /HPF Urine Culture Reflexed (NO) Urine Opiates Level (NEGATIVE) Ur Methadone (NEGATIVE) Urine Barbiturates (NEGATIVE) Ur Phencyclidine (PCP) (NEGATIVE) Urine Amphetamine (NEGATIVE) U Benzodiazepine Level (NEGATIVE) Urine Cocaine (NEGATIVE) Urine Marijuana (THC) (NEGATIVE) 10/12/24 10/12/24 10/12/24 Range/Units 06:13 06:13 06:13 WBC (4.23-9.07) x10^3/uL RBC (4.63-6.08) x10^6/uL Hgb (13.7-17.5) g/dL Hct (40.1-51.0) % MCV (79.0-92.2) fL MCH (25.7-32.2) pg MCHC (32.3-36.5) g/dL RDW (11.6-14.4) % Plt Count (163-337) x10^3/uL MPV (9.4-12.4) fL Gran % (34.0-67.9) % Immature Gran % (Auto) (0.001-0.429) % Nucleat RBC Rel Count (0.00-0.2) % Eos # (Auto) (0.04-0.54) x10^3/uL Immature Gran # (Auto) (0.001-0.031) x10^3u/L Absolute Lymphs (auto) (1.32-3.57) x10^3/uL Absolute Monos (auto) (0.30-0.82) x10^3/uL Absolute Nucleated RBC (0.00-0.012) x10^3u/L Lymphocytes % (21.8-53.1) % Monocytes % (5.3-12.2) % Eosinophils % (0.8-7.0) % Basophils % (0.2-1.2) % Absolute Granulocytes (1.78-5.38) x10^3/uL Basophils # (0.01-0.08) x10^3/uL PT (9.4-12.5) SECONDS INR (0.8-3.0) APTT (25.1-36.5) SECONDS Sodium 139 (135-145) mmol/L Potassium 4.0 (3.5-5.1) mmol/L Chloride 110 H (98-107) mmol/L Carbon Dioxide 21 L (22-30) mmol/L Anion Gap 12.4 (5-15) MEQ/L BUN 10 (9-20) mg/dL Creatinine 0.66 (0.66-1.25) mg/dL Estimated GFR 122.4 ML/MIN Glucose 102 (74-106) mg/dL POC Glucometer (74 to 106) mg/dL Hemoglobin A1c 5.17 (4.5-6.0) % Lactic Acid (0.4-2.0) Calcium 9.2 (8.4-10.2) mg/dL Magnesium (1.6-2.3) mg/dL Total Bilirubin 0.40 (0.2-1.3) mg/dL Direct Bilirubin 0.3 (0.0-0.4) mg/dL AST 20 (17-59) U/L ALT 19 (0-50) U/L Alkaline Phosphatase 66 (38-126) U/L Troponin (0.00-0.03) ng/mL Troponin I (0.000-0.033) ng/mL Serum Total Protein 6.2 L (6.3-8.2) g/dL Albumin 3.6 (3.5-5.0) g/dL Triglycerides 104 (30-150) mg/dL Cholesterol 187 (50-200) mg/dL LDL Cholesterol 124 H (30-100) mg/dL HDL Cholesterol 38 L (40-60) mg/dL Heart Disease Risk Ratio 5.0 Urine Color (Yellow) Urine Appearance (Clear) Urine pH (4.6-8.0) Ur Specific [place] (1.005-1.030) Urine Protein (Negative) Urine Glucose (UA) (Negative) mg/dL Urine Ketones (Negative) Urine Blood (Negative) Urine Nitrite (Negative) Urine Bilirubin (Negative) Urine Urobilinogen (0.2) mg/dL Ur Leukocyte Esterase (Negative) U Hyaline Cast (Auto) (0-2) /LPF Urine Microscopic RBC (0-5) /HPF Urine Microscopic WBC (0-5) /HPF Ur Epithelial Cells (None Seen) /HPF Urine Bacteria (None Seen) /HPF Urine Culture Reflexed (NO) Urine Opiates Level (NEGATIVE) Ur Methadone (NEGATIVE) Urine Barbiturates (NEGATIVE) Ur Phencyclidine (PCP) (NEGATIVE) Urine Amphetamine (NEGATIVE) U Benzodiazepine Level (NEGATIVE) Urine Cocaine (NEGATIVE) Urine Marijuana (THC) (NEGATIVE) - Radiology Orders Radiology Orders: Radiology Procedures Category Date Time Status CHEST 1 VIEW (PORTABLE) Stat Exams 10/11/24 22:[address] ANGIOGRAPHY NECK [CT] Stat Exams 10/12/24 01:29 Completed CTA HEAD W AND/OR WO CONTRAST [CT] Stat Exams 10/12/24 01:28 Completed ECHO W/2D AND DOPPLER [US] Routine Exams 10/12/24 04:50 Taken HEAD WITHOUT CONTRAST [CT] Stat Exams 10/11/24 22:47 Completed - CT Impressions CT Head w/o contrast Status: image reviewed by me (Small right parietal hypodensity) CTA Head with and/or w/o contrast Status: image reviewed by me (no sig stenosis or occlusion) Assessment & Plan (1) Stroke Current Visit: Yes Status: Acute Assessment & Plan: CTH with right parietal hypodensity concerning for acute infarct. Explains acute onset left weakness which has been stable. Unable to tolerate MRI brain due to claustrophobia despite multiple attempts and Ativan. CTA unrevealing. TTE without bubble study EF 55%. Cryptogenic at this point, does have risk factors LDL 120s, HTN but still very young. Possible amphetamine abuse per notes. Afebrile, no clear evidence of infection. 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 -Hematology workup as outpatient -F/u with Neurology within 2-4 weeks, consider MRI in open scanner if change in clinical status Code(s): I63.9 - CEREBRAL INFARCTION, UNSPECIFIED (2) Schizophrenia Current Visit: Yes Status: Chronic Code(s): F20.9 - SCHIZOPHRENIA, UNSPECIFIED (3) Bipolar 1 disorder Current Visit: Yes Status: Chronic Code(s): F31.9 - BIPOLAR DISORDER, UNSPECIFIED (4) Abdominal pain Current Visit: No Status: Acute Qualifiers: Abdominal location: epigastric Qualified Code(s): R10.13 - Epigastric pain Code(s): R10.9 - UNSPECIFIED ABDOMINAL PAIN (5) HTN (hypertension) Current Visit: Yes Status: Acute Code(s): I10 - ESSENTIAL (PRIMARY) HYPERTENSION (6) HLD (hyperlipidemia) Current Visit: Yes Status: Acute Code(s): E78.5 - HYPERLIPIDEMIA, UNSPECIFIED - Encounter Encounter: "The entirety of this encounter was performed via Telemedicine using audio and visual , patient consented verbally"
[2024-10-12 20:17] VITALS: BP 120/65; PULSE 86; RESP 20; TEMP 98.2; O2SAT 94
--- NOTE | 2024-10-12 20:22 | PCM.DS ---
Discharge Summary Date of Admission: 10/12/24 03:54 Date of Discharge: 10/12/24 Admitting Physician: MARCIA FARRIS MD Consults: Consults on Case 10/11/24 23:15 O [facility] Referral ONCE Neurology, Dr. Gunnar Whitt Primary Care Provider: YOU WALKER Allergies Allergies No Known Drug Allergies Allergy (Verified 10/12/24 04:27) Hospital Summary - Hospital Course Hospital Course: 39-year-old man with history of schizophrenia, PTSD, and bipolar disorder, who presented with 2 days of left facial droop as well as left arm and left leg numbness/tingling/weakness. Patient's were stable and unchanged over those [address] showed a small right posterior parietal focal hypodense area in the subcortical aspect. CTA head and neck were unremarkable. Echocardiogram without bubble study did not show any abnormalities. Patient was unable to tolerate MRI brain due to claustrophobia, despite multiple attempts with lorazepam. Concern was due to presence of stroke with such a young patient. Neurology was consulted, and recommended initiating aspirin and statin, with further outpatient workup including follow-up with neurologist, echocardiogram with bubble study, and ambulatory cardiac monitoring, as well as outpatient PT and OT. Patient has not establish primary care with a Agency physician. Patient was eager to be discharged home, and did not want to wait for referrals to be made by our hospital team. He he stated he would arrange all outpatient follow-ups. Prescriptions were sent to [facility], and referral made to occupational therapy. - Vitals & Intake/Output Vital Signs: Vital Signs Temperature 97.9 F 10/12/24 16:00 Pulse Rate 85 10/12/24 16:00 Respiratory Rate 16 10/12/24 16:00 Blood Pressure 138/82 10/12/24 16:00 O2 Sat by Pulse Oximetry 97 10/12/24 17:02 Intake & Output: Intake & Output 10/10/24 10/11/24 10/12/24 10/13/24 11:59 11:59 11:59 11:59 Intake Total 480 Output Total 450 Balance -450 480 Weight 93.7 kg - Lab Result Diagrams: 10/12/24 06:13 10/12/24 06:13 Lab Results-Last 24 Hrs: Lab Results-Last 24 Hours 10/11/24 10/11/24 10/11/24 Range/Units 00:40 00:40 22:43 WBC (4.23-9.07) x10^3/uL RBC (4.63-6.08) x10^6/uL Hgb (13.7-17.5) g/dL Hct (40.1-51.0) % MCV (79.0-92.2) fL MCH (25.7-32.2) pg MCHC (32.3-36.5) g/dL RDW (11.6-14.4) % Plt Count (163-337) x10^3/uL MPV (9.4-12.4) fL Gran % (34.0-67.9) % Immature Gran % (Auto) (0.001-0.429) % Nucleat RBC Rel Count (0.00-0.2) % Eos # (Auto) (0.04-0.54) x10^3/uL Immature Gran # (Auto) (0.001-0.031) x10^3u/L Absolute Lymphs (auto) (1.32-3.57) x10^3/uL Absolute Monos (auto) (0.30-0.82) x10^3/uL Absolute Nucleated RBC (0.00-0.012) x10^3u/L Lymphocytes % (21.8-53.1) % Monocytes % (5.3-12.2) % Eosinophils % (0.8-7.0) % Basophils % (0.2-1.2) % Absolute Granulocytes (1.78-5.38) x10^3/uL Basophils # (0.01-0.08) x10^3/uL PT (9.4-12.5) SECONDS INR (0.8-3.0) APTT (25.1-36.5) SECONDS Sodium (135-145) mmol/L Potassium (3.5-5.1) mmol/L Chloride (98-107) mmol/L Carbon Dioxide (22-30) mmol/L Anion Gap (5-15) MEQ/L BUN (9-20) mg/dL Creatinine (0.66-1.25) mg/dL Estimated GFR ML/MIN Glucose (74-106) mg/dL POC Glucometer 144 H (74 to 106) mg/dL Hemoglobin A1c (4.5-6.0) % Lactic Acid (0.4-2.0) Calcium (8.4-10.2) mg/dL Magnesium (1.6-2.3) mg/dL Total Bilirubin (0.2-1.3) mg/dL Direct Bilirubin (0.0-0.4) mg/dL AST (17-59) U/L ALT (0-50) U/L Alkaline Phosphatase (38-126) U/L Troponin (0.00-0.03) ng/mL Troponin I (0.000-0.033) ng/mL Serum Total Protein (6.3-8.2) g/dL Albumin (3.5-5.0) g/dL Triglycerides (30-150) mg/dL Cholesterol (50-200) mg/dL LDL Cholesterol (30-100) mg/dL HDL Cholesterol (40-60) mg/dL Heart Disease Risk Ratio Urine Color Yellow (Yellow) Urine Appearance Clear (Clear) Urine pH 7.0 (4.6-8.0) Ur Specific [place] 1.025 (1.005-1.030) Urine Protein Negative (Negative) Urine Glucose (UA) Negative (Negative) mg/dL Urine Ketones Negative (Negative) Urine Blood Negative (Negative) Urine Nitrite Negative (Negative) Urine Bilirubin Negative (Negative) Urine Urobilinogen 1.0 A (0.2) mg/dL Ur Leukocyte Esterase Negative (Negative) U Hyaline Cast (Auto) NONE SEEN (0-2) /LPF Urine Microscopic RBC 0-2 (0-5) /HPF Urine Microscopic WBC 0-2 (0-5) /HPF Ur Epithelial Cells None Seen (None Seen) /HPF Urine Bacteria None Seen (None Seen) /HPF Urine Culture Reflexed NO (NO) Urine Opiates Level POSITIVE A (NEGATIVE) Ur Methadone NEGATIVE (NEGATIVE) Urine Barbiturates NEGATIVE (NEGATIVE) Ur Phencyclidine (PCP) NEGATIVE (NEGATIVE) Urine Amphetamine NEGATIVE (NEGATIVE) U Benzodiazepine Level NEGATIVE (NEGATIVE) Urine Cocaine NEGATIVE (NEGATIVE) Urine Marijuana (THC) NEGATIVE (NEGATIVE) 10/11/24 10/11/24 10/11/24 Range/Units 22:47 22:52 22:52 WBC 10.9 H (4.23-9.07) x10^3/uL RBC 4.70 (4.63-6.08) x10^6/uL Hgb 15.5 (13.7-17.5) g/dL Hct 43.9 (40.1-51.0) % MCV 93.4 H (79.0-92.2) fL MCH 33.0 H (25.7-32.2) pg MCHC 35.3 (32.3-36.5) g/dL RDW 12.8 (11.6-14.4) % Plt Count 413 H (163-337) x10^3/uL MPV 10.6 (9.4-12.4) fL Gran % 52.6 (34.0-67.9) % Immature Gran % (Auto) 0.6 H (0.001-0.429) % Nucleat RBC Rel Count 0.0 (0.00-0.2) % Eos # (Auto) 0.40 (0.04-0.54) x10^3/uL Immature Gran # (Auto) 0.06 H (0.001-0.031) x10^3u/L Absolute Lymphs (auto) 3.88 H (1.32-3.57) x10^3/uL Absolute Monos (auto) 0.72 (0.30-0.82) x10^3/uL Absolute Nucleated RBC 0.00 (0.00-0.012) x10^3u/L Lymphocytes % 35.8 (21.8-53.1) % Monocytes % 6.6 (5.3-12.2) % Eosinophils % 3.7 (0.8-7.0) % Basophils % 0.7 (0.2-1.2) % Absolute Granulocytes 5.71 H (1.78-5.38) x10^3/uL Basophils # 0.08 (0.01-0.08) x10^3/uL PT (9.4-12.5) SECONDS INR (0.8-3.0) APTT (25.1-36.5) SECONDS Sodium 142 (135-145) mmol/L Potassium 3.7 (3.5-5.1) mmol/L Chloride 104 (98-107) mmol/L Carbon Dioxide 24 (22-30) mmol/L Anion Gap 17.6 H (5-15) MEQ/L BUN 14 (9-20) mg/dL Creatinine 0.74 (0.66-1.25) mg/dL Estimated GFR 118.2 ML/MIN Glucose 140 H (74-106) mg/dL POC Glucometer (74 to 106) mg/dL Hemoglobin A1c (4.5-6.0) % Lactic Acid 2.8 H (0.4-2.0) Calcium 9.5 (8.4-10.2) mg/dL Magnesium 1.7 (1.6-2.3) mg/dL Total Bilirubin 0.40 (0.2-1.3) mg/dL Direct Bilirubin (0.0-0.4) mg/dL AST 29 (17-59) U/L ALT 26 (0-50) U/L Alkaline Phosphatase 65 (38-126) U/L Troponin (0.00-0.03) ng/mL Troponin I (0.000-0.033) ng/mL Serum Total Protein 8.0 (6.3-8.2) g/dL Albumin 4.7 (3.5-5.0) g/dL Triglycerides (30-150) mg/dL Cholesterol (50-200) mg/dL LDL Cholesterol (30-100) mg/dL HDL Cholesterol (40-60) mg/dL Heart Disease Risk Ratio Urine Color (Yellow) Urine Appearance (Clear) Urine pH (4.6-8.0) Ur Specific [place] (1.005-1.030) Urine Protein (Negative) Urine Glucose (UA) (Negative) mg/dL Urine Ketones (Negative) Urine Blood (Negative) Urine Nitrite (Negative) Urine Bilirubin (Negative) Urine Urobilinogen (0.2) mg/dL Ur Leukocyte Esterase (Negative) U Hyaline Cast (Auto) (0-2) /LPF Urine Microscopic RBC (0-5) /HPF Urine Microscopic WBC (0-5) /HPF Ur Epithelial Cells (None Seen) /HPF Urine Bacteria (None Seen) /HPF Urine Culture Reflexed (NO) Urine Opiates Level (NEGATIVE) Ur Methadone (NEGATIVE) Urine Barbiturates (NEGATIVE) Ur Phencyclidine (PCP) (NEGATIVE) Urine Amphetamine (NEGATIVE) U Benzodiazepine Level (NEGATIVE) Urine Cocaine (NEGATIVE) Urine Marijuana (THC) (NEGATIVE) 10/11/24 10/11/24 10/12/24 Range/Units 22:52 22:54 01:01 WBC (4.23-9.07) x10^3/uL RBC (4.63-6.08) x10^6/uL Hgb (13.7-17.5) g/dL Hct (40.1-51.0) % MCV (79.0-92.2) fL MCH (25.7-32.2) pg MCHC (32.3-36.5) g/dL RDW (11.6-14.4) % Plt Count (163-337) x10^3/uL MPV (9.4-12.4) fL Gran % (34.0-67.9) % Immature Gran % (Auto) (0.001-0.429) % Nucleat RBC Rel Count (0.00-0.2) % Eos # (Auto) (0.04-0.54) x10^3/uL Immature Gran # (Auto) (0.001-0.031) x10^3u/L Absolute Lymphs (auto) (1.32-3.57) x10^3/uL Absolute Monos (auto) (0.30-0.82) x10^3/uL Absolute Nucleated RBC (0.00-0.012) x10^3u/L Lymphocytes % (21.8-53.1) % Monocytes % (5.3-12.2) % Eosinophils % (0.8-7.0) % Basophils % (0.2-1.2) % Absolute Granulocytes (1.78-5.38) x10^3/uL Basophils # (0.01-0.08) x10^3/uL PT 10.9 (9.4-12.5) SECONDS INR 1.00 (0.8-3.0) APTT 27.1 (25.1-36.5) SECONDS Sodium (135-145) mmol/L Potassium (3.5-5.1) mmol/L Chloride (98-107) mmol/L Carbon Dioxide (22-30) mmol/L Anion Gap (5-15) MEQ/L BUN (9-20) mg/dL Creatinine (0.66-1.25) mg/dL Estimated GFR ML/MIN Glucose (74-106) mg/dL POC Glucometer (74 to 106) mg/dL Hemoglobin A1c (4.5-6.0) % Lactic Acid 1.5 (0.4-2.0) Calcium (8.4-10.2) mg/dL Magnesium (1.6-2.3) mg/dL Total Bilirubin (0.2-1.3) mg/dL Direct Bilirubin (0.0-0.4) mg/dL AST (17-59) U/L ALT (0-50) U/L Alkaline Phosphatase (38-126) U/L Troponin (0.00-0.03) ng/mL Troponin I < 0.012 (0.000-0.033) ng/mL Serum Total Protein (6.3-8.2) g/dL Albumin (3.5-5.0) g/dL Triglycerides (30-150) mg/dL Cholesterol (50-200) mg/dL LDL Cholesterol (30-100) mg/dL HDL Cholesterol (40-60) mg/dL Heart Disease Risk Ratio Urine Color (Yellow) Urine Appearance (Clear) Urine pH (4.6-8.0) Ur Specific [place] (1.005-1.030) Urine Protein (Negative) Urine Glucose (UA) (Negative) mg/dL Urine Ketones (Negative) Urine Blood (Negative) Urine Nitrite (Negative) Urine Bilirubin (Negative) Urine Urobilinogen (0.2) mg/dL Ur Leukocyte Esterase (Negative) U Hyaline Cast (Auto) (0-2) /LPF Urine Microscopic RBC (0-5) /HPF Urine Microscopic WBC (0-5) /HPF Ur Epithelial Cells (None Seen) /HPF Urine Bacteria (None Seen) /HPF Urine Culture Reflexed (NO) Urine Opiates Level (NEGATIVE) Ur Methadone (NEGATIVE) Urine Barbiturates (NEGATIVE) Ur Phencyclidine (PCP) (NEGATIVE) Urine Amphetamine (NEGATIVE) U Benzodiazepine Level (NEGATIVE) Urine Cocaine (NEGATIVE) Urine Marijuana (THC) (NEGATIVE) 10/12/24 10/12/24 10/12/24 Range/Units 02:28 06:13 06:13 WBC 11.3 H (4.23-9.07) x10^3/uL RBC 4.07 L (4.63-6.08) x10^6/uL Hgb 13.4 L (13.7-17.5) g/dL Hct 38.7 L (40.1-51.0) % MCV 95.1 H (79.0-92.2) fL MCH 32.9 H (25.7-32.2) pg MCHC 34.6 (32.3-36.5) g/dL RDW 13.0 (11.6-14.4) % Plt Count 343 H (163-337) x10^3/uL MPV 9.9 (9.4-12.4) fL Gran % (34.0-67.9) % Immature Gran % (Auto) (0.001-0.429) % Nucleat RBC Rel Count (0.00-0.2) % Eos # (Auto) (0.04-0.54) x10^3/uL Immature Gran # (Auto) (0.001-0.031) x10^3u/L Absolute Lymphs (auto) (1.32-3.57) x10^3/uL Absolute Monos (auto) (0.30-0.82) x10^3/uL Absolute Nucleated RBC (0.00-0.012) x10^3u/L Lymphocytes % (21.8-53.1) % Monocytes % (5.3-12.2) % Eosinophils % (0.8-7.0) % Basophils % (0.2-1.2) % Absolute Granulocytes (1.78-5.38) x10^3/uL Basophils # (0.01-0.08) x10^3/uL PT (9.4-12.5) SECONDS INR (0.8-3.0) APTT (25.1-36.5) SECONDS Sodium (135-145) mmol/L Potassium (3.5-5.1) mmol/L Chloride (98-107) mmol/L Carbon Dioxide (22-30) mmol/L Anion Gap (5-15) MEQ/L BUN (9-20) mg/dL Creatinine (0.66-1.25) mg/dL Estimated GFR ML/MIN Glucose (74-106) mg/dL POC Glucometer (74 to 106) mg/dL Hemoglobin A1c (4.5-6.0) % Lactic Acid (0.4-2.0) Calcium (8.4-10.2) mg/dL Magnesium (1.6-2.3) mg/dL Total Bilirubin (0.2-1.3) mg/dL Direct Bilirubin (0.0-0.4) mg/dL AST (17-59) U/L ALT (0-50) U/L Alkaline Phosphatase (38-126) U/L Troponin 0.00 (0.00-0.03) ng/mL Troponin I < 0.012 Cancelled (0.000-0.033) ng/mL Serum Total Protein (6.3-8.2) g/dL Albumin (3.5-5.0) g/dL Triglycerides (30-150) mg/dL Cholesterol (50-200) mg/dL LDL Cholesterol (30-100) mg/dL HDL Cholesterol (40-60) mg/dL Heart Disease Risk Ratio Urine Color (Yellow) Urine Appearance (Clear) Urine pH (4.6-8.0) Ur Specific [place] (1.005-1.030) Urine Protein (Negative) Urine Glucose (UA) (Negative) mg/dL Urine Ketones (Negative) Urine Blood (Negative) Urine Nitrite (Negative) Urine Bilirubin (Negative) Urine Urobilinogen (0.2) mg/dL Ur Leukocyte Esterase (Negative) U Hyaline Cast (Auto) (0-2) /LPF Urine Microscopic RBC (0-5) /HPF Urine Microscopic WBC (0-5) /HPF Ur Epithelial Cells (None Seen) /HPF Urine Bacteria (None Seen) /HPF Urine Culture Reflexed (NO) Urine Opiates Level (NEGATIVE) Ur Methadone (NEGATIVE) Urine Barbiturates (NEGATIVE) Ur Phencyclidine (PCP) (NEGATIVE) Urine Amphetamine (NEGATIVE) U Benzodiazepine Level (NEGATIVE) Urine Cocaine (NEGATIVE) Urine Marijuana (THC) (NEGATIVE) 10/12/24 10/12/24 10/12/24 Range/Units 06:13 06:13 06:13 WBC (4.23-9.07) x10^3/uL RBC (4.63-6.08) x10^6/uL Hgb (13.7-17.5) g/dL Hct (40.1-51.0) % MCV (79.0-92.2) fL MCH (25.7-32.2) pg MCHC (32.3-36.5) g/dL RDW (11.6-14.4) % Plt Count (163-337) x10^3/uL MPV (9.4-12.4) fL Gran % (34.0-67.9) % Immature Gran % (Auto) (0.001-0.429) % Nucleat RBC Rel Count (0.00-0.2) % Eos # (Auto) (0.04-0.54) x10^3/uL Immature Gran # (Auto) (0.001-0.031) x10^3u/L Absolute Lymphs (auto) (1.32-3.57) x10^3/uL Absolute Monos (auto) (0.30-0.82) x10^3/uL Absolute Nucleated RBC (0.00-0.012) x10^3u/L Lymphocytes % (21.8-53.1) % Monocytes % (5.3-12.2) % Eosinophils % (0.8-7.0) % Basophils % (0.2-1.2) % Absolute Granulocytes (1.78-5.38) x10^3/uL Basophils # (0.01-0.08) x10^3/uL PT (9.4-12.5) SECONDS INR (0.8-3.0) APTT (25.1-36.5) SECONDS Sodium 139 (135-145) mmol/L Potassium 4.0 (3.5-5.1) mmol/L Chloride 110 H (98-107) mmol/L Carbon Dioxide 21 L (22-30) mmol/L Anion Gap 12.4 (5-15) MEQ/L BUN 10 (9-20) mg/dL Creatinine 0.66 (0.66-1.25) mg/dL Estimated GFR 122.4 ML/MIN Glucose 102 (74-106) mg/dL POC Glucometer (74 to 106) mg/dL Hemoglobin A1c 5.17 (4.5-6.0) % Lactic Acid (0.4-2.0) Calcium 9.2 (8.4-10.2) mg/dL Magnesium (1.6-2.3) mg/dL Total Bilirubin 0.40 (0.2-1.3) mg/dL Direct Bilirubin 0.3 (0.0-0.4) mg/dL AST 20 (17-59) U/L ALT 19 (0-50) U/L Alkaline Phosphatase 66 (38-126) U/L Troponin (0.00-0.03) ng/mL Troponin I (0.000-0.033) ng/mL Serum Total Protein 6.2 L (6.3-8.2) g/dL Albumin 3.6 (3.5-5.0) g/dL Triglycerides 104 (30-150) mg/dL Cholesterol 187 (50-200) mg/dL LDL Cholesterol 124 H (30-100) mg/dL HDL Cholesterol 38 L (40-60) mg/dL Heart Disease Risk Ratio 5.0 Urine Color (Yellow) Urine Appearance (Clear) Urine pH (4.6-8.0) Ur Specific [place] (1.005-1.030) Urine Protein (Negative) Urine Glucose (UA) (Negative) mg/dL Urine Ketones (Negative) Urine Blood (Negative) Urine Nitrite (Negative) Urine Bilirubin (Negative) Urine Urobilinogen (0.2) mg/dL Ur Leukocyte Esterase (Negative) U Hyaline Cast (Auto) (0-2) /LPF Urine Microscopic RBC (0-5) /HPF Urine Microscopic WBC (0-5) /HPF Ur Epithelial Cells (None Seen) /HPF Urine Bacteria (None Seen) /HPF Urine Culture Reflexed (NO) Urine Opiates Level (NEGATIVE) Ur Methadone (NEGATIVE) Urine Barbiturates (NEGATIVE) Ur Phencyclidine (PCP) (NEGATIVE) Urine Amphetamine (NEGATIVE) U Benzodiazepine Level (NEGATIVE) Urine Cocaine (NEGATIVE) Urine Marijuana (THC) (NEGATIVE) - Radiology Exams Ordered Rad Exams-Entire Visit: Radiology Procedures Category Date Time Status CHEST 1 VIEW (PORTABLE) Stat Exams 10/11/24 22:[address] ANGIOGRAPHY NECK [CT] Stat Exams 10/12/24 01:29 Completed CTA HEAD W AND/OR WO CONTRAST [CT] Stat Exams 10/12/24 01:28 Completed ECHO W/2D AND DOPPLER [US] Routine Exams 10/12/24 04:50 Taken HEAD WITHOUT CONTRAST [CT] Stat Exams 10/11/24 22:47 Completed - Procedures and Test Procedures and Tests throughout Hospitalization: Therapy Orders & Screens 10/12/24 04:06 Respiratory Therapy Consult ONCE Comment: Reason For Exam: 10/12/24 04:23 OT Screen per Nursing Assess ONCE Comment: Protocol Order Physician Instructions: Greater than 3 points order OT Admission Screening Reason For Exam: Triggered on Admission Diagnosis: STROKE Open Wound/Cellutlitis/Pressure Ulcers: No Acute Fx/ORIF/Change in wt bearing status: No Severe MUSCULOSKELETAL pain: No ADL Dysfunction: Yes Acute CVA w/Hemiparesis/Hemiplegia: Yes Decreased Functional Mobility/Strength: Yes Sprain/Strain: No Acute Post-op Mobility Dysfunction: No Total Points: 9 PT Screen per Nursing Assess ONCE Comment: Protocol Order Physician Instructions: Greater than 3 points order PT Admission Screenin Reason For Exam: Triggered on Admission Diagnosis: STROKE Open Wound/Cellutlitis/Pressure Ulcers: No Acute Fx/ORIF/Change in wt bearing status: No Severe MUSCULOSKELETAL pain: No ADL Dysfunction: Yes Acute CVA w/Hemiparesis/Hemiplegia: Yes Decreased Functional Mobility/Strength: Yes Sprain/Strain: No Acute Post-op Mobility Dysfunction: No Total Points: 9 Smoking Cessation Education ONCE Comment: Diagnosis: STROKE Smoking Status: Current every day smoker How long have you smoked: 25 Have you smoked in the past 12 months: Yes Approximately how many cigarettes per day: 1ppd Do you dip or chew tobacco: No If,Former Smoker,when did you quit: [address] Screen per Nursing Assess ONCE Comment: Protocol Order Physician Instructions: Greater than [address] Admission Screening Reason For Exam: Triggered on Admission Diagnosis: STROKE CVA/Dysphagia/Aphasia: Yes Cognitive Deficits: No Dehydration/Nutrition Deficit: No Reflux: No Oral-Motor Difficulties: No Pneumonia: No Snf Resident: No Total Points: 5 10/12/24 04:52 PT Eval & Treat (MD Order) ROUTINE Reason for Eval:: CVA Diagnosis: STROKE Final Diagnosis/Problem List - Final Discharge Diagnosis/Problem (1) Stroke Current Visit: Yes Status: Acute Code(s): I63.9 - CEREBRAL INFARCTION, UNSPECIFIED Telemedicine Encounter - Telemedicine Encounter Telemedicine Encounter: "The entirety of this encounter was performed via Telemedicine" This visit was performed using real-time audio and video connection between my location and thepatients locationwith the assistance of a surrogateat the patients location. Written or verbal consent was obtained from the patient/guardian to perform this visit [facility]. Any patient questions regarding the telemedicine interaction were answered. - Discharge Discharge Date: 10/12/24 Disposition: Home, Self-Care Condition: Stable Prescriptions: New Atorvastatin Calcium 80 mg PO HS #30 tablet Aspirin EC 81 mg [Ecotrin 81 mg] 81 mg PO DAILY #30 tablet Continue OLANZapine [Olanzapine] 10 mg PO HS Buspirone HCl 5 mg [Buspar 5 mg] 10 mg PO TID hydrOXYzine pamoate [Hydroxyzine Pamoate] 1 cap PO Q6H PRN PRN PRN Reason: Anxiety Prazosin HCl 2 mg PO HS Trazodone HCl 100 mg PO HS Outpatient Orders: Occupational Therapy Eval & Treat Facility: [facility], Location: OCCUPATIONAL THERAPY Instructions: Stroke Additional Instructions: [facility] APT [facility] IS 10/19/24@1 PM You were treated for an acute stroke. There seems to be a stroke on your head CT, and your symptoms were consistent with a stroke. However, we were unable to do the MRI that would have confirmed the diagnosis. You need to establish care with a neurologist, preferably to see in the next 2 to 4 weeks. You will need another echocardiogram (heart ultrasound) that can do a bubble study to look for any holes or shunts in your heart that would predispose you to stroke. You will also need to get a heart monitor that can measure your heart rhythm for a long time. This will be arranged by your outpatient doctor, and could either be a wearable monitor or one that is temporarily implanted under your skin. Please fill two new prescriptions to help reduce further risk of stroke: Aspirin 81 mg - take one tablet by mouth once a day; this is also available over -the-counter Atorvastatin 80 mg - take one table by mouth at night. Follow up with: YOU WALKER [Primary Care Provider] -
[2024-10-12] MEDS: DESYREL 50 MG PO SCH (20:37)
[2024-10-12] MEDS: zyPREXA 5MG TABLET PO SCH (20:37)
[2024-10-12] MEDS: LIPITOR 40MG PO SCH (20:39)
[2024-10-12] MEDS ORDERED: NON-FORMULARY ITEM (Olanzapine [Olanzapine] 10 MG Tablet) PO SCH (22:00)
[2024-10-12] MEDS ORDERED: NON-FORMULARY ITEM (Prazosin Hcl [Prazosin Hcl] 1 MG Capsule) PO SCH (22:00)
[2024-10-12] MEDS ORDERED: NON-FORMULARY ITEM (Trazodone Hcl [Trazodone Hcl] 100 MG Tablet) PO SCH (22:00)
== END 2024-10-12 21:20 | disposition home or self-care (01) ==
LOC: ED 22:30 → MED SURG 10-12 03:54
PROVIDERS: ADMIT Internal Medicine; ATTEND Internal Medicine
DX: I63.9 Cerebral infarction, unspecified (principal); F31.9 Bipolar disorder, unspecified; F20.9 Schizophrenia, unspecified; F15.10 Other stimulant abuse, uncomplicated; Z79.899 Other long term (current) drug therapy; F17.200 Nicotine dependence, unspecified, uncomplicated; Z59.82 Transportation insecurity
CPT/HCPCS: 36415; 70450; 70496; 70498; 71045; 80048; 80053; 80061; 80076; 80307; 81001; 82947; 83036; 83605; 83721; 83735; 84484; 85025; 85027; 85610; 85730; 93005; 93041; 93306; 94762; 99291; Q3014; 93268; 99285; J2060; A9270-GY; G0378